=== PATIENT | female | born 1985 | race Caucasian/White ===

== ENCOUNTER 2016-06-24 13:45 | Emergency (ER) | payer OTHER, MEDICARE, MEDICAID ==
[~2016-06-24] VITALS: Ht 165.1 cm; Wt 81.6 kg
[~2016-06-24 13:45] MED LIST: /CELE20CA OR; /LINE60TA OR; /ONDA4TA PO; /QUET10TA OR; ACET650T12 PO; ATIV1TAB2 OR; BENT20TA OR; CIMZKIT SC; CLIN300C PO; DICY10EL OR; EFFE150C OR; EFFEXOR XR PO; FENT1DIS14 TD; FERR325T OR; FROV2.5T2 PO; KLON0.5T PO; KLON1TAB OR; LIQUSOL OU; MECL-68 PO; METH1INJ INJ; MIRA3350 PO; MOME50SP; PERC5TAB6 PO; PRED10TA PO; PRED5TA PO; REME15TA OR; REMERON PO; RISP0.2515 PO; SEASONALE PO; SEASTAB PO; SENO8.6T10 PO; SULF500T2 PO; TRAM50TA2 PO; VANC250C2 PO; VENL150C43 PO; VITA1CAP14 PO; VITA500C3 PO; VITA500T OR; VITAMINB IM; VITMTA PO; XANA0.25 OR; XARE15TA PO; ZOFR20TA PO; [UNRECOGNIZED DRUG - CODE] PO; [UNRECOGNIZED DRUG - OTHER]; anexsia; antivert PO; pentasa OR; remicade IV
[2016-06-24] MEDS ORDERED: PRED20TA PO (13:53)
[2016-06-24] MEDS ORDERED: ZANA4TAB PO (15:33)
[2016-06-24] MEDS ORDERED: ZITHTAB PO (15:33)
[2016-06-24 15:49] VITALS: BP 121/72
--- NOTE | 2016-06-25 08:27 | REP ---
Pain after trauma. No comparison. FINDINGS: The compartments are symmetric and relatively well maintained. There is no acute fracture or destructive osseous lesion. Signed by Renny Magana DO 06/25/2016 10:27 A
--- NOTE | 2016-06-25 08:28 | REP ---
Pain after trauma. No prior left hand for comparison. FINDINGS: The joint spaces are symmetric and relatively well maintained. There is no evidence of acute fracture or destructive osseous lesion. IMPRESSION: Negative. Signed by Renny Magana DO 06/25/2016 10:27 A
== END 2016-06-24 15:49 | disposition home or self-care (01) ==
LOC: M ED 15:25
DX: Z04.1 Encounter for examination and observation following transport accident (principal); M79.642 Pain in left hand; M25.561 Pain in right knee; H66.90 Otitis media, unspecified, unspecified ear; J01.90 Acute sinusitis, unspecified; K50.90 Crohn's disease, unspecified, without complications; G43.909 Migraine, unspecified, not intractable, without status migrainosus; M06.9 Rheumatoid arthritis, unspecified; F41.9 Anxiety disorder, unspecified; F32.9 Major depressive disorder, single episode, unspecified; Z87.440 Personal history of urinary (tract) infections; Z79.899 Other long term (current) drug therapy; F17.210 Nicotine dependence, cigarettes, uncomplicated

== ENCOUNTER → 2016-07-14 | Outpatient (CLI) | payer MEDICARE, MEDICAID ==
[~2016-07-14] MED LIST changes: +PRED20TA PO; +ZANA4TAB PO; +ZITHTAB PO
[2016-07-14 14:35] LABS: MEAN CORPUSCULAR HEMOGLOBIN 31.4 pg (27.0-33.0); MEAN CORPUSCULAR HGB CONC 32.3 g/dl (32.0-36.5); MEAN CORPUSCULAR VOLUME 97.1 fl (80.0-96.0); RED CELL DISTRIBUTION WIDTH 13.1 % (11.5-14.5); WHITE BLOOD COUNT 11.3 K/mm3 (4.0-10.0)
[2016-07-14 14:48] LABS: ALBUMIN/GLOBULIN RATIO 1.21 (1.00-1.93); ALKALINE PHOSPHATASE 118 U/L (45-117); ALT/SGPT 23 U/L (12-78); ANION GAP 9 MEQ/L (8-16); AST/SGOT 13 U/L (15-37); BILIRUBIN,TOTAL 0.9 MG/DL (0.2-1.0); BLOOD UREA NITROGEN 13 MG/DL (7-18); CALCIUM LEVEL 9.1 MG/DL (8.5-10.1); CARBON DIOXIDE LEVEL 28 MEQ/L (21-32); CHLORIDE LEVEL 100 MEQ/L (98-107); CREATININE FOR GFR 0.84 MG/DL (0.55-1.02); GLOMERULAR FILTRATION RATE > 60.0 (>60); GLUCOSE, FASTING 163 MG/DL (70-105); POTASSIUM SERUM 4.2 MEQ/L (3.5-5.1); SODIUM LEVEL 137 MEQ/L (136-145); TOTAL PROTEIN 7.3 GM/DL (6.4-8.2)
[2016-07-14 15:02] LABS: HEPATITIS B SURFACE ANTIBODY POSITIVE (POSITIVE)
== END ==
LOC: M LAB 13:44
PROVIDERS: ATTEND Internal Medicine Gastroenterology
DX: K50.919 Crohn's disease, unspecified, with unspecified complications (principal)

== ENCOUNTER → 2017-03-16 | Outpatient (CLI) | payer MEDICARE, MEDICAID ==
[~2017-03-16] MED LIST changes: +CLIN150C14 PO; +DULO30CA PO; +FROV2.5T4 PO; +GASTROGRAFIN SOLUTION 30ML (Q9963) As Ordered ONE; +ISOVUE-370 76% 100ML VIAL (Q9967) As Ordered ONE; +LOMO2.5T PO; +LORA2CON5 PO; +PERC5TAB12 PO; -PERC5TAB6 PO; +PROC25SU24 PO; -RISP0.2515 PO; +RISP0.2516 PO; +ROZE8TAB16 PO; +VITA200038 PO
--- NOTE | 2017-03-16 17:16 | REP ---
CT ABDOMEN AND PELVIS WITH CONTRAST: HISTORY: Abdominal tenderness. CONTRAST: Isovue-370, 100 mL. COMPARISON: 06/25/2015. The liver, gallbladder, pancreas, spleen and adrenal glands and kidneys are normal in appearance. There is no mass adenopathy or free fluid. The visualized lungs are clear. The urinary bladder and uterus are normal in appearance. IMPRESSION: Normal CT abdomen and pelvis. Signed by Talib Chan MD 03/16/2017 05:20 P
== END ==
LOC: M RAD 15:12
PROVIDERS: ATTEND Physician Assistant
DX: R10.815 Periumbilic abdominal tenderness (principal); K50.90 Crohn's disease, unspecified, without complications; R10.31 Right lower quadrant pain
CPT/HCPCS: 36415; 74000; 74177; 80053; 85025; 87086; Q9963; Q9967

== ENCOUNTER → 2017-03-16 | Outpatient (CLI) | payer MEDICARE, MEDICAID ==
[~2017-03-16] MED LIST changes: -GASTROGRAFIN SOLUTION 30ML (Q9963) As Ordered ONE; -ISOVUE-370 76% 100ML VIAL (Q9967) As Ordered ONE
--- NOTE | 2017-03-16 10:05 | REP ---
Clinical: Abdominal pain. Technique: Two supine views of the abdomen and pelvis. Findings: Bowel gas pattern is nonspecific. No evidence for obstruction or perforation. No organomegaly. No obvious abnormal calcifications. Skeletal structures are intact. Impression: Nonspecific abdominal radiographs. Signed by Dylon Mcmullen MD 03/16/2017 09:57 A
[2017-03-16 12:43] LABS: BASO % 0.2 % (0.0-1.0); EOS % 0.1 % (0.0-3.0); IMMATURE GRANULOCYTE % 0.4 % (0-0); LYMPH # 1.4 10^3/uL (1.5-4.5); LYMPH % 9.3 % (24.0-44.0); MEAN CORPUSCULAR HEMOGLOBIN 30.7 pg (27.0-33.0); MEAN CORPUSCULAR HGB CONC 32.4 g/dl (32.0-36.5); MEAN CORPUSCULAR VOLUME 94.7 fl (80.0-96.0); MONO # 0.3 10^3/uL (0.0-0.8); PLATELET COUNT, AUTOMATED 343 10^3/uL (150-450); RED CELL DISTRIBUTION WIDTH 13.6 % (11.5-14.5); WHITE BLOOD COUNT 14.8 10^3/uL (4.0-10.0)
[2017-03-16 13:03] LABS: ALBUMIN 4.1 GM/DL (3.2-5.2); ALBUMIN/GLOBULIN RATIO 1.08 (1.00-1.93); ALKALINE PHOSPHATASE 86 U/L (45-117); ALT/SGPT 17 U/L (12-78); ANION GAP 10 MEQ/L (8-16); AST/SGOT 8 U/L (7-37); BILIRUBIN,TOTAL 0.9 MG/DL (0.2-1.0); BLOOD UREA NITROGEN 14 MG/DL (7-18); CARBON DIOXIDE LEVEL 28 MEQ/L (21-32); CHLORIDE LEVEL 104 MEQ/L (98-107); CREATININE FOR GFR 0.66 MG/DL (0.55-1.02); GLOMERULAR FILTRATION RATE > 60.0 (>60); GLUCOSE, FASTING 107 MG/DL (70-105); POTASSIUM SERUM 4.9 MEQ/L (3.5-5.1); SODIUM LEVEL 142 MEQ/L (136-145); TOTAL PROTEIN 7.9 GM/DL (6.4-8.2)
== END ==
LOC: M WUC 09:40
PROVIDERS: ATTEND Physician Assistant
DX: R10.815 Periumbilic abdominal tenderness (principal); R10.31 Right lower quadrant pain

== ENCOUNTER 2017-03-17 23:41 | Emergency (ER) | payer MEDICARE, MEDICAID ==
[~2017-03-17] VITALS: Ht 165.1 cm; Wt 90.9 kg
[~2017-03-17 23:41] MED LIST changes: -CLIN150C14 PO; -DULO30CA PO; -LOMO2.5T PO; -LORA2CON5 PO; -PROC25SU24 PO; -ROZE8TAB16 PO; -VITA200038 PO
[2017-03-17] MEDS ORDERED: ROZE8TAB16 PO (23:57)
[2017-03-17] MEDS ORDERED: PROC25SU24 PO (23:57)
[2017-03-17] MEDS ORDERED: LOMO2.5T PO (23:57)
[2017-03-17] MEDS ORDERED: DULO30CA PO (23:57)
[2017-03-17] MEDS ORDERED: LORA2CON5 PO (23:57)
[2017-03-17] MEDS ORDERED: VITA200038 PO (23:57)
[2017-03-18] MEDS ORDERED: MIDAZOLAM INJ 5 MG/ML VIAL (J2250) As Ordered ONE (02:55)
[2017-03-18] MEDS ORDERED: METOCLOPRAMIDE INJ 10MG/2ML VIAL (J2765) IV ONE (05:30)
[2017-03-18] MEDS ORDERED: NS 1,000 ML IV ONE (05:30)
[2017-03-18] MEDS ORDERED: GASTROGRAFIN SOLUTION 30ML (Q9963) PO ONE (05:45)
[2017-03-18 06:16] LABS: MEAN CORPUSCULAR HEMOGLOBIN 30.9 pg (27.0-33.0); MEAN CORPUSCULAR HGB CONC 32.6 g/dl (32.0-36.5); MEAN CORPUSCULAR VOLUME 94.8 fl (80.0-96.0); PLATELET COUNT, AUTOMATED 333 10^3/uL (150-450); RED CELL DISTRIBUTION WIDTH 13.3 % (11.5-14.5); WHITE BLOOD COUNT 18.3 10^3/uL (4.0-10.0)
[2017-03-18 06:18] LABS: ADD MANUAL DIFFER YES; DIFF SLIDE NUMBER 98; POSITIVE DIFF POS FLAG
[2017-03-18 06:43] LABS: ALBUMIN 3.9 GM/DL (3.2-5.2); ALBUMIN/GLOBULIN RATIO 1.05 (1.00-1.93); ALKALINE PHOSPHATASE 75 U/L (45-117); ALT/SGPT 16 U/L (12-78); ANION GAP 6 MEQ/L (8-16); AST/SGOT 7 U/L (7-37); BILIRUBIN,DIRECT 0.2 MG/DL (0.0-0.2); BILIRUBIN,TOTAL 0.5 MG/DL (0.2-1.0); BLOOD UREA NITROGEN 13 MG/DL (7-18); CARBON DIOXIDE LEVEL 30 MEQ/L (21-32); CHLORIDE LEVEL 106 MEQ/L (98-107); CREATININE FOR GFR 0.74 MG/DL (0.55-1.02); GLOMERULAR FILTRATION RATE > 60.0 (>60); GLUCOSE, FASTING 78 MG/DL (70-105); POTASSIUM SERUM 4.2 MEQ/L (3.5-5.1); SODIUM LEVEL 142 MEQ/L (136-145); TOTAL PROTEIN 7.6 GM/DL (6.4-8.2)
[2017-03-18] MEDS ORDERED: MORPHINE 4 MG/ML 1ML SYRINGE IV ONE (07:15)
[2017-03-18] MEDS ORDERED: ISOVUE-370 76% 100ML VIAL (Q9967) As Ordered ONE (07:26)
[2017-03-18] MEDS ORDERED: PROMETHAZINE INJ 25 MG/ML VIAL (J2550) IV ONE (09:30)
--- NOTE | 2017-03-18 09:33 | REP ---
CT ABDOMEN AND PELVIS WITH CONTRAST: HISTORY: Fistula. CONTRAST: Isovue-370, 100 mL COMPARISON: 03/16/2017 The liver, gallbladder, pancreas, spleen, adrenal glands and kidneys are normal in appearance. There is no mass, adenopathy or free fluid. The visualized lungs are clear. The urinary bladder and uterus are normal in appearance. There is minimal thickening of the soft tissue in the region of the umbilicus. This appears decreased compared to the previous study. IMPRESSION: There is minimal thickening of the soft tissue in the region of the umbilicus that is slightly decreased compared to the previous study. This may represent cellulitis. Signed by Talib Chan MD 03/18/2017 09:55 A
[2017-03-18] MEDS ORDERED: CLIN150C14 PO (10:16)
[2017-03-18 10:29] VITALS: BP 162/73
== END 2017-03-18 10:31 | disposition home or self-care (01) ==
LOC: M ED 23:41
DX: L03.316 Cellulitis of umbilicus (principal); K50.90 Crohn's disease, unspecified, without complications; G43.909 Migraine, unspecified, not intractable, without status migrainosus; Z79.899 Other long term (current) drug therapy
CPT/HCPCS: 74177; 80048; 80076; 83605; 83690; 85025; 96361; 96374; 96375; 99284; J2250; J2765; Q9963; Q9967

== ENCOUNTER → 2017-03-29 | Outpatient (CLI) | payer MEDICARE, MEDICAID ==
[~2017-03-29] MED LIST changes: +CLIN150C14 PO; +DULO30CA PO; +LOMO2.5T PO; +LORA2CON5 PO; +PROC25SU24 PO; +ROZE8TAB16 PO; +VITA200038 PO
[2017-03-29 21:05] LABS: ALBUMIN 3.7 GM/DL (3.2-5.2); ALBUMIN/GLOBULIN RATIO 1.12 (1.00-1.93); ALKALINE PHOSPHATASE 77 U/L (45-117); ALT/SGPT 23 U/L (12-78); ANION GAP 8 MEQ/L (8-16); AST/SGOT 13 U/L (7-37); BILIRUBIN,TOTAL 0.5 MG/DL (0.2-1.0); BLOOD UREA NITROGEN 23 MG/DL (7-18); CALCIUM LEVEL 8.1 MG/DL (8.5-10.1); CARBON DIOXIDE LEVEL 28 MEQ/L (21-32); CHLORIDE LEVEL 103 MEQ/L (98-107); CREATININE FOR GFR 0.71 MG/DL (0.55-1.02); FERRITIN 62 NG/ML (8-252); GLOMERULAR FILTRATION RATE > 60.0 (>60); GLUCOSE, FASTING 98 MG/DL (70-105); MAGNESIUM LEVEL 2.2 MG/DL (1.8-2.4); PERCENT SATURATION 17.8 % (13.2-45.0); POTASSIUM SERUM 4.4 MEQ/L (3.5-5.1); SODIUM LEVEL 139 MEQ/L (136-145); TOTAL IRON BINDING CAPACITY 393 UG/DL (250-450)
[2017-03-29 21:40] LABS: MEAN CORPUSCULAR HEMOGLOBIN 30.9 pg (27.0-33.0); MEAN CORPUSCULAR HGB CONC 32.3 g/dl (32.0-36.5); MEAN CORPUSCULAR VOLUME 95.5 fl (80.0-96.0); PLATELET COUNT, AUTOMATED 316 10^3/uL (150-450); RED CELL DISTRIBUTION WIDTH 15.2 % (11.5-14.5); WHITE BLOOD COUNT 15.8 10^3/uL (4.0-10.0)
[2017-03-29 22:53] LABS: ERYTHROCYTE SEDIMENTATION RATE 3 mm/hr (0-20)
== END ==
LOC: M WUC 16:17
PROVIDERS: ATTEND Internal Medicine Gastroenterology
DX: E55.9 Vitamin D deficiency, unspecified (principal); K50.919 Crohn's disease, unspecified, with unspecified complications; M25.50 Pain in unspecified joint; G25.79 Other drug induced movement disorders; R63.4 Abnormal weight loss

== ENCOUNTER → 2017-09-25 | Outpatient (REF) | payer MEDICARE, MEDICAID ==
[2017-09-25 16:45] LABS: HEMATOCRIT 39.8 % (36.0-47.0); HEMOGLOBIN 12.8 g/dl (12.0-15.5); MEAN CORPUSCULAR HEMOGLOBIN 31.7 pg (27.0-33.0); MEAN CORPUSCULAR HGB CONC 32.2 g/dl (32.0-36.5); MEAN CORPUSCULAR VOLUME 98.5 fl (80.0-96.0); PLATELET COUNT, AUTOMATED 431 10^3/uL (150-450); RED BLOOD COUNT 4.04 10^6/uL (4.00-5.40); RED CELL DISTRIBUTION WIDTH 14.2 % (11.5-14.5); WHITE BLOOD COUNT 8.9 10^3/uL (4.0-10.0)
[2017-09-25 17:04] LABS: CORTISOL AM 3.1 UG/DL (4.3-22.4); TOTAL 25(OH) VITAMIN D 59.4 NG/ML (30.0-100.0); VITAMIN B12 LEVEL 1378 PG/ML (247-911)
[2017-09-25 17:06] LABS: ALBUMIN 3.4 GM/DL (3.2-5.2); ALBUMIN/GLOBULIN RATIO 1.06 (1.00-1.93); ALKALINE PHOSPHATASE 73 U/L (45-117); ALT/SGPT 30 U/L (12-78); ANION GAP 7 MEQ/L (8-16); AST/SGOT 13 U/L (7-37); BILIRUBIN,TOTAL 0.3 MG/DL (0.2-1.0); BLOOD UREA NITROGEN 10 MG/DL (7-18); C REACTIVE PROTEIN QUANTITATIV 2.32 MG/DL (0.00-0.30); CALCIUM LEVEL 8.7 MG/DL (8.5-10.1); CARBON DIOXIDE LEVEL 29 MEQ/L (21-32); CHLORIDE LEVEL 108 MEQ/L (98-107); CREATININE FOR GFR 0.71 MG/DL (0.55-1.30); GLOMERULAR FILTRATION RATE > 60.0 (>60); GLUCOSE, FASTING 75 MG/DL (70-100); MAGNESIUM LEVEL 2.2 MG/DL (1.8-2.4); POTASSIUM SERUM 4.3 MEQ/L (3.5-5.1); SODIUM LEVEL 144 MEQ/L (136-145); TOTAL PROTEIN 6.6 GM/DL (6.4-8.2)
[2017-09-27 14:16] LABS: ADRENOCORTICOTROPHIC HORMONE 6.1 pg/mL (7.2-63.3)
== END ==
LOC: M LABDRWCV 16:14
DX: K50.919 Crohn's disease, unspecified, with unspecified complications (principal); R19.7 Diarrhea, unspecified; L25.8 Unspecified contact dermatitis due to other agents; K21.0 Gastro-esophageal reflux disease with esophagitis; K44.9 Diaphragmatic hernia without obstruction or gangrene; Z79.899 Other long term (current) drug therapy
CPT/HCPCS: 83735

== ENCOUNTER → 2017-12-24 | Outpatient (CLI) | payer MEDICARE, MEDICAID ==
[2017-12-24 16:24] LABS: HEMATOCRIT 45.5 % (36.0-47.0); MEAN CORPUSCULAR HEMOGLOBIN 31.5 pg (27.0-33.0); MEAN CORPUSCULAR VOLUME 95.6 fl (80.0-96.0); PLATELET COUNT, AUTOMATED 367 10^3/uL (150-450); RED BLOOD COUNT 4.76 10^6/uL (4.00-5.40); RED CELL DISTRIBUTION WIDTH 13.7 % (11.5-14.5); WHITE BLOOD COUNT 11.4 10^3/uL (4.0-10.0)
[2017-12-24 16:41] LABS: INR 0.98; PROTHROMBIN TIME 13.1 SECONDS (12.1-14.4)
[2017-12-24 16:42] LABS: PARTIAL THROMBOPLASTIN TIME 27.6 SECONDS (25.4-37.6)
[2017-12-24 17:32] LABS: ERYTHROCYTE SEDIMENTATION RATE 5 mm/hr (0-20)
[2017-12-24 17:45] LABS: TOTAL 25(OH) VITAMIN D 74.1 NG/ML (30.0-100.0); VITAMIN B12 LEVEL 382 PG/ML (247-911)
[2017-12-24 23:07] LABS: ALBUMIN 4.4 GM/DL (3.2-5.2); ALKALINE PHOSPHATASE 91 U/L (45-117); ALT/SGPT 19 U/L (12-78); ANION GAP 8 MEQ/L (8-16); AST/SGOT 13 U/L (7-37); BILIRUBIN,TOTAL 1.5 MG/DL (0.2-1.0); BLOOD UREA NITROGEN 15 MG/DL (7-18); C REACTIVE PROTEIN QUANTITATIV < 0.30 MG/DL (0.00-0.30); CALCIUM LEVEL 9.6 MG/DL (8.5-10.1); CARBON DIOXIDE LEVEL 28 MEQ/L (21-32); CHLORIDE LEVEL 102 MEQ/L (98-107); CREATININE FOR GFR 0.88 MG/DL (0.55-1.30); FERRITIN 146 NG/ML (8-252); GLOMERULAR FILTRATION RATE > 60.0 (>60); GLUCOSE, FASTING 88 MG/DL (70-100); IRON (FE) 130 UG/DL (50-170); POTASSIUM SERUM 4.2 MEQ/L (3.5-5.1); SODIUM LEVEL 138 MEQ/L (136-145); TOTAL IRON BINDING CAPACITY 428 UG/DL (250-450); TOTAL PROTEIN 8.1 GM/DL (6.4-8.2)
[2017-12-24 23:08] LABS: ALBUMIN/GLOBULIN RATIO 1.19 (1.00-1.93)
[2017-12-24 23:09] LABS: PERCENT SATURATION 30.4 % (13.2-45.0)
[2017-12-30 08:06] LABS: VITAMIN A, RETINOL LEVEL 64.6 ug/dL (31.2-89.1)
== END ==
LOC: M LAB 15:30
DX: K50.919 Crohn's disease, unspecified, with unspecified complications (principal); R10.84 Generalized abdominal pain; M54.5 Low back pain; M25.50 Pain in unspecified joint; Z79.899 Other long term (current) drug therapy
CPT/HCPCS: 83550

== ENCOUNTER 2018-01-17 18:06 | Emergency (ER) | payer MEDICARE, MEDICAID ==
[2018-01-17] MEDS: TRIMETHOBENZAMIDE HCL INJ 200 MG/2 ML VIAL (J3250) IM (17:45)
[2018-01-17] MEDS: NS 1,000 ML IV (17:45)
[2018-01-17] MEDS: MORPHINE 4 MG/ML 1ML VIAL/SYRINGE (J2270) IV (17:45)
[2018-01-17 18:04] LABS: BASO % 0.3 % (0.0-1.0); EOS # 0.1 10^3/uL (0.0-0.50); EOS % 0.8 % (0.0-3.0); HEMATOCRIT 46.9 % (36.0-47.0); HEMOGLOBIN 15.2 g/dl (12.0-15.5); IMMATURE GRANULOCYTE % 0.3 % (0-3.0); LYMPH # 1.5 10^3/uL (1.5-4.5); LYMPH % 15.9 % (24.0-44.0); MEAN CORPUSCULAR HEMOGLOBIN 31.2 pg (27.0-33.0); MEAN CORPUSCULAR HGB CONC 32.4 g/dl (32.0-36.5); MEAN CORPUSCULAR VOLUME 96.3 fl (80.0-96.0); MONO # 0.5 10^3/uL (0.0-0.8); MONO % 5.1 % (0.0-5.0); NEUTROPHILS # 7.5 10^3/uL (1.8-7.7); NEUTROPHILS % 77.6 % (36.0-66.0); PLATELET COUNT, AUTOMATED 345 10^3/uL (150-450); RED BLOOD COUNT 4.87 10^6/uL (4.00-5.40); RED CELL DISTRIBUTION WIDTH 13.2 % (11.5-14.5); WHITE BLOOD COUNT 9.6 10^3/uL (4.0-10.0)
[2018-01-17 18:10] LABS: KETONE, URINE AUTO RFX NEGATIVE (NEGATIVE); LEUKOCYTE ESTERASE UR AUTO RFX NEGATIVE (NEGATIVE); MUCUS, URINE RFX LARGE (NEGATIVE); NITRITE, URINE AUTO RFX NEGATIVE (NEGATIVE); RBC, URINE AUTO RFX 7 /HPF (0-3); SPECIFIC GRAVITY UR AUTO RFX 1.021 (1.002-1.035); SQUAM EPITHELIAL CELL UR AURFX 3 /HPF (0-6); WBC, URINE AUTO RFX 1 /HPF (0-3)
[2018-01-17] MEDS: GASTROGRAFIN SOLUTION 30ML PO ×2 (18:10→18:39)
[2018-01-17 18:30] LABS: ALBUMIN 4.5 GM/DL (3.2-5.2); ALBUMIN/GLOBULIN RATIO 1.18 (1.00-1.93); ALKALINE PHOSPHATASE 87 U/L (45-117); ALT/SGPT 18 U/L (12-78); ANION GAP 7 MEQ/L (8-16); AST/SGOT 12 U/L (7-37); BILIRUBIN,TOTAL 0.6 MG/DL (0.2-1.0); BLOOD UREA NITROGEN 10 MG/DL (7-18); C REACTIVE PROTEIN QUANTITATIV < 0.30 MG/DL (0.00-0.30); CALCIUM LEVEL 9.5 MG/DL (8.5-10.1); CARBON DIOXIDE LEVEL 28 MEQ/L (21-32); CHLORIDE LEVEL 104 MEQ/L (98-107); CREATININE FOR GFR 0.75 MG/DL (0.55-1.30); GLOMERULAR FILTRATION RATE > 60.0 (>60); GLUCOSE, FASTING 92 MG/DL (70-100); HCG, SERUM QUANTITATIVE < 1.0 MIU/ML; LIPASE 102 U/L (73-393); POTASSIUM SERUM 4.1 MEQ/L (3.5-5.1); SODIUM LEVEL 139 MEQ/L (136-145); TOTAL PROTEIN 8.3 GM/DL (6.4-8.2)
[2018-01-17] MEDS ORDERED: ISOVUE-370 76% 100ML VIAL (Q9967) As Ordered (19:53)
[2018-01-17] MEDS: methylPREDNISolone INJ 125 MG/2 ML VIAL (J2930) IV (19:56)
[2018-01-17] MEDS: ONDANSETRON 4MG/2ML VIAL (J2405) IV (19:56)
[2018-01-17] MEDS: ONDANSETRON 4 MG ORAL DISINTEGRATING TAB (Q0162 PER 1MG) PO (21:37)
[2018-01-17] MEDS: NORCO 5/325MG TABLET (BULK FOR ED) PO (21:38)
== END 2018-01-17 21:40 | disposition home or self-care (01) ==
LOC: M ED 18:06
DX: R10.12 Left upper quadrant pain (principal); R11.10 Vomiting, unspecified; Z87.19 Personal history of other diseases of the digestive system; F41.9 Anxiety disorder, unspecified; F33.9 Major depressive disorder, recurrent, unspecified; Z87.442 Personal history of urinary calculi; Z87.891 Personal history of nicotine dependence; Z79.899 Other long term (current) drug therapy
CPT/HCPCS: J2270

== ENCOUNTER → 2018-01-28 | Outpatient (REF) | payer MEDICARE, MEDICAID | LOC: M LAB REF 09:00 | DX: K50.919 Crohn's disease, unspecified, with unspecified complications (principal); R10.84 Generalized abdominal pain; M54.5 Low back pain; M25.50 Pain in unspecified joint | CPT/HCPCS: 84311 ==

== ENCOUNTER → 2018-02-20 | Outpatient (REF) | payer MEDICARE, MEDICAID ==
[2018-02-20 17:05] LABS: HEMATOCRIT 39.2 % (36.0-47.0); HEMOGLOBIN 12.3 g/dl (12.0-15.5); MEAN CORPUSCULAR HEMOGLOBIN 31.1 pg (27.0-33.0); MEAN CORPUSCULAR HGB CONC 31.4 g/dl (32.0-36.5); PLATELET COUNT, AUTOMATED 316 10^3/uL (150-450); RED BLOOD COUNT 3.96 10^6/uL (4.00-5.40); RED CELL DISTRIBUTION WIDTH 13.7 % (11.5-14.5); WHITE BLOOD COUNT 11.3 10^3/uL (4.0-10.0)
[2018-02-20 17:09] LABS: ALBUMIN 3.6 GM/DL (3.2-5.2); ALBUMIN/GLOBULIN RATIO 1.33 (1.00-1.93); ALKALINE PHOSPHATASE 55 U/L (45-117); ALT/SGPT 28 U/L (12-78); ANION GAP 5 MEQ/L (8-16); AST/SGOT 20 U/L (7-37); BILIRUBIN,TOTAL 0.4 MG/DL (0.2-1.0); BLOOD UREA NITROGEN 14 MG/DL (7-18); CALCIUM LEVEL 8.7 MG/DL (8.5-10.1); CARBON DIOXIDE LEVEL 34 MEQ/L (21-32); CHLORIDE LEVEL 103 MEQ/L (98-107); CREATININE FOR GFR 0.66 MG/DL (0.55-1.30); GLOMERULAR FILTRATION RATE > 60.0 (>60); GLUCOSE, FASTING 78 MG/DL (70-100); MAGNESIUM LEVEL 2.4 MG/DL (1.8-2.4); POTASSIUM SERUM 3.9 MEQ/L (3.5-5.1); SODIUM LEVEL 142 MEQ/L (136-145); TOTAL PROTEIN 6.3 GM/DL (6.4-8.2)
[2018-02-20 17:12] LABS: INR 0.94; PROTHROMBIN TIME 12.6 SECONDS (12.1-14.4)
[2018-02-20 17:13] LABS: PARTIAL THROMBOPLASTIN TIME 25.3 SECONDS (25.4-37.6)
[2018-02-20 17:17] LABS: TOTAL 25(OH) VITAMIN D 38.3 NG/ML (30.0-100.0); VITAMIN B12 LEVEL 423 PG/ML (247-911)
[2018-02-25 14:35] LABS: VITAMIN C, ASCORBIC ACID 0.7 mg/dL (0.2-2.0)
== END ==
LOC: M LABDRWCV 16:28
DX: K50.919 Crohn's disease, unspecified, with unspecified complications (principal); M25.50 Pain in unspecified joint; G25.79 Other drug induced movement disorders; E55.9 Vitamin D deficiency, unspecified
CPT/HCPCS: 83735

== ENCOUNTER → 2018-04-08 | Outpatient (REF) | payer MEDICARE, MEDICAID ==
[~2018-04-08] MED LIST changes: +ACET30TAB PO; +BUPR1TAB53; +TIGA300C2 PO; -ZOFR20TA PO; +ZOFR4TAB16 PO
== END ==
LOC: M LAB REF 13:42
PROVIDERS: ATTEND Internal Medicine Gastroenterology
DX: K50.919 Crohn's disease, unspecified, with unspecified complications (principal)

== ENCOUNTER → 2018-10-22 | Outpatient (CLI) | payer MEDICARE, MEDICAID ==
[~2018-10-22] MED LIST changes: -/CELE20CA OR; -/LINE60TA OR; -/ONDA4TA PO; -/QUET10TA OR; +ACET-716 PO; -ACET30TAB PO; +CELE1CAP4 OR; -DULO30CA PO; +DULO30CA9 PO; +ONDA-1 PO; +PRED-351 PO; -PRED10TA PO; +SERO1TAB OR; -VANC250C2 PO; +VANC250C3 PO; +ZYVO100T OR
[2018-10-22 10:53] LABS: HEMATOCRIT 44.3 % (36.0-47.0); HEMOGLOBIN 14.1 g/dl (12.0-15.5); MEAN CORPUSCULAR HEMOGLOBIN 30.5 pg (27.0-33.0); MEAN CORPUSCULAR HGB CONC 31.8 g/dl (32.0-36.5); MEAN CORPUSCULAR VOLUME 95.9 fl (80.0-96.0); PLATELET COUNT, AUTOMATED 361 10^3/uL (150-450); RED BLOOD COUNT 4.62 10^6/uL (4.00-5.40); WHITE BLOOD COUNT 20.2 10^3/uL (4.0-10.0)
[2018-10-22 11:29] LABS: ALBUMIN 3.8 GM/DL (3.2-5.2); ALT/SGPT 18 U/L (12-78); BILIRUBIN,TOTAL 1.1 MG/DL (0.2-1.0); BLOOD UREA NITROGEN 14 MG/DL (7-18); C REACTIVE PROTEIN QUANTITATIV 0.37 MG/DL (0.00-0.30); CALCIUM LEVEL 9.4 MG/DL (8.5-10.1); CARBON DIOXIDE LEVEL 30 MEQ/L (21-32); CHLORIDE LEVEL 111 MEQ/L (98-107); CREATININE FOR GFR 0.89 MG/DL (0.55-1.30); GLOMERULAR FILTRATION RATE > 60.0 (>60); GLUCOSE, FASTING 78 MG/DL (70-100); MAGNESIUM LEVEL 2.2 MG/DL (1.8-2.4); POTASSIUM SERUM 3.9 MEQ/L (3.5-5.1); SODIUM LEVEL 135 MEQ/L (136-145); TOTAL 25(OH) VITAMIN D 93.9 NG/ML (30.0-100.0); TOTAL PROTEIN 7.2 GM/DL (6.4-8.2); VITAMIN B12 LEVEL 522 PG/ML (247-911)
[2018-10-23 08:47] LABS: HEPATITIS B SURFACE ANTIGEN NEGATIVE (NEGATIVE)
[2018-10-23 09:15] LABS: HEPATITIS C VIRUS ABY INDEX 0.1 INDEX (<0.8)
== END ==
LOC: M LAB 10:00
PROVIDERS: ATTEND Internal Medicine Gastroenterology
DX: K50.919 Crohn's disease, unspecified, with unspecified complications (principal); R19.7 Diarrhea, unspecified; K21.0 Gastro-esophageal reflux disease with esophagitis

== ENCOUNTER → 2018-11-04 | Outpatient (CLI) | payer OTHER, MEDICARE, MEDICAID ==
[~2018-11-04] MED LIST changes: +ADDE30CA3 PO; +GABA-843 PO; +VALI5TAB PO
--- NOTE | 2018-11-04 18:53 | REP ---
REASON: Back pain. Three views were obtained. COMPARISON: None. Vertebral body height and alignment is within normal limits. The disc spaces are symmetric and well maintained. The pedicles are intact bilaterally. IMPRESSION: Limited exam showing no abnormality. Electronically Signed by Renny Magana DO 11/04/2018 07:41 P
--- NOTE | 2018-11-04 18:54 | REP ---
REASON: Pain. FINDINGS: The hip joint spaces are symmetric and relatively well maintained. There is no acute fracture or destructive osseous lesion. Electronically Signed by Renny Magana DO 11/04/2018 07:41 P
== END ==
LOC: M WUC 14:51
PROVIDERS: ATTEND Internal Medicine Gastroenterology
DX: M54.5 Low back pain (principal); M25.559 Pain in unspecified hip

== ENCOUNTER → 2018-11-12 | Outpatient (CLI) | payer OTHER, MEDICARE, MEDICAID | LOC: M WUC 16:03 | PROVIDERS: ATTEND Physician Assistant | DX: M54.5 Low back pain (principal) ==

== ENCOUNTER → 2018-11-19 | Outpatient (CLI) | payer MEDICARE, MEDICAID ==
[~2018-11-19] MED LIST changes: -ADDE30CA3 PO; -GABA-843 PO; -VALI5TAB PO
--- NOTE | 2018-11-19 09:31 | REP ---
RIGHT UPPER QUADRANT ULTRASOUND: Real-time sonographic evaluation of the right upper quadrant performed. Gallbladder demonstrates no evidence of intraluminal sludge or calculi, wall thickening, or pericholecystic fluid. There is no intrahepatic or extrahepatic biliary dilatation, common bile duct measuring 5 mm. Liver demonstrates heterogeneous increased echotexture compatible with diffuse fibrofatty infiltration. No gross mass is seen. Pancreas is not well seen due to overlying bowel gas. Right kidney demonstrates no hydronephrosis with normal size 9.4 cm in length. There is no ascites. IMPRESSION: Diffuse fibrofatty infiltration of the liver. Electronically Signed by Adam Meléndez MD 11/19/2018 07:18 P
== END ==
LOC: M RAD 06:06
PROVIDERS: ATTEND Internal Medicine Gastroenterology
DX: K76.0 Fatty (change of) liver, not elsewhere classified (principal)

== ENCOUNTER 2018-12-02 14:57 | Emergency (ER) | payer MEDICARE, MEDICAID ==
[~2018-12-02] VITALS: Ht 165.1 cm; Wt 95.5 kg
[2018-12-02] MEDS ORDERED: GABA-843 PO (15:12)
[2018-12-02] MEDS ORDERED: ADDE30CA3 PO (15:12)
[2018-12-02 15:49] LABS: BASO % 0.2 % (0.0-1.0); EOS # 0.1 10^3/uL (0.0-0.50); EOS % 0.5 % (0.0-3.0); HEMATOCRIT 40.5 % (36.0-47.0); HEMOGLOBIN 13.3 g/dl (12.0-15.5); LYMPH # 3.1 10^3/uL (1.5-4.5); LYMPH % 25.1 % (24.0-44.0); MEAN CORPUSCULAR HEMOGLOBIN 31.7 pg (27.0-33.0); MEAN CORPUSCULAR HGB CONC 32.8 g/dl (32.0-36.5); MEAN CORPUSCULAR VOLUME 96.7 fl (80.0-96.0); NEUTROPHILS # 8.1 10^3/uL (1.8-7.7); NEUTROPHILS % 65.8 % (36.0-66.0); PLATELET COUNT, AUTOMATED 312 10^3/uL (150-450); RED BLOOD COUNT 4.19 10^6/uL (4.00-5.40); WHITE BLOOD COUNT 12.3 10^3/uL (4.0-10.0)
[2018-12-02 16:20] LABS: BLOOD UREA NITROGEN 19 MG/DL (7-18); CALCIUM LEVEL 9.8 MG/DL (8.5-10.1); CARBON DIOXIDE LEVEL 30 MEQ/L (21-32); CHLORIDE LEVEL 107 MEQ/L (98-107); GLOMERULAR FILTRATION RATE > 60.0 (>60); GLUCOSE, FASTING 81 MG/DL (70-100); POTASSIUM SERUM 3.6 MEQ/L (3.5-5.1); SODIUM LEVEL 144 MEQ/L (136-145)
[2018-12-02] MEDS ORDERED: dexameTHASONE 4 MG/ML 1ML VIAL (J1100) IV ONE (17:30)
[2018-12-02] MEDS ORDERED: MORPHINE 4 MG/ML 1ML VIAL/SYRINGE (J2270) IV ONE (17:30)
[2018-12-02] MEDS ORDERED: ACETAMINOPHEN 500 MG TAB PO ONE (17:30)
[2018-12-02] MEDS ORDERED: diazePAM 5 MG TAB PO ONE (17:30)
[2018-12-02] MEDS ORDERED: LIDOCAINE 5% (LIDODERM) PATCH TD ONE (17:30)
[2018-12-02] MEDS ORDERED: KETOROLAC 30 MG/ML VIAL (J1885) IV ONE (17:30)
[2018-12-02] MEDS ORDERED: VALI5TAB PO (19:48)
[2018-12-02 20:00] VITALS: BP 104/62
== END 2018-12-02 20:19 | disposition home or self-care (01) ==
LOC: EDSEX 14:57 → EDBD 14:57 → M ED 14:57
DX: M54.5 Low back pain (principal); M62.830 Muscle spasm of back; D64.9 Anemia, unspecified; F33.9 Major depressive disorder, recurrent, unspecified; F41.9 Anxiety disorder, unspecified; K50.90 Crohn's disease, unspecified, without complications; Z79.899 Other long term (current) drug therapy
CPT/HCPCS: 80048; 85025; 96374; 96375; 99285; J1100; J1885; J2270

== ENCOUNTER → 2019-01-23 | Outpatient (CLI) | payer MEDICARE, MEDICAID ==
[~2019-01-23] MED LIST changes: +ADDE30CA3 PO; +GABA-843 PO; +VALI5TAB PO
== END ==
LOC: M LAB 13:00
PROVIDERS: ATTEND Internal Medicine Gastroenterology
DX: K50.919 Crohn's disease, unspecified, with unspecified complications (principal)
CPT/HCPCS: 36415; 83520; G0463

== ENCOUNTER → 2019-01-29 | Outpatient (REF) | payer MEDICARE, MEDICAID ==
[2019-01-29 16:44] LABS: HEMATOCRIT 44.2 % (36.0-47.0); HEMOGLOBIN 13.9 g/dl (12.0-15.5); MEAN CORPUSCULAR HGB CONC 31.4 g/dl (32.0-36.5); MEAN CORPUSCULAR VOLUME 95.5 fl (80.0-96.0); PLATELET COUNT, AUTOMATED 419 10^3/uL (150-450); RED BLOOD COUNT 4.63 10^6/uL (4.00-5.40); WHITE BLOOD COUNT 9.2 10^3/uL (4.0-10.0)
[2019-01-29 16:58] LABS: ALBUMIN 3.9 GM/DL (3.2-5.2); ALT/SGPT 17 U/L (12-78); BILIRUBIN,TOTAL 0.4 MG/DL (0.2-1.0); BLOOD UREA NITROGEN 18 MG/DL (7-18); CALCIUM LEVEL 9.2 MG/DL (8.5-10.1); CARBON DIOXIDE LEVEL 30 MEQ/L (21-32); CHLORIDE LEVEL 104 MEQ/L (98-107); CREATININE FOR GFR 0.99 MG/DL (0.55-1.30); GLOMERULAR FILTRATION RATE > 60.0 (>60); GLUCOSE, FASTING 88 MG/DL (70-100); MAGNESIUM LEVEL 1.9 MG/DL (1.8-2.4); POTASSIUM SERUM 3.7 MEQ/L (3.5-5.1); SODIUM LEVEL 141 MEQ/L (136-145)
[2019-01-29 16:59] LABS: TOTAL 25(OH) VITAMIN D 58.5 NG/ML (30.0-100.0); VITAMIN B12 LEVEL 560 PG/ML (247-911)
== END ==
LOC: M LABDRWCV 16:09
PROVIDERS: ATTEND Internal Medicine Gastroenterology
DX: E55.9 Vitamin D deficiency, unspecified (principal); K50.919 Crohn's disease, unspecified, with unspecified complications; R19.7 Diarrhea, unspecified; R94.5 Abnormal results of liver function studies

== ENCOUNTER → 2019-04-25 | Outpatient (CLI) | payer MEDICARE, MEDICAID ==
[2019-04-25 13:19] LABS: HEMATOCRIT 39.8 % (36.0-47.0); HEMOGLOBIN 12.6 g/dl (12.0-15.5); MEAN CORPUSCULAR HGB CONC 31.7 g/dl (32.0-36.5); MEAN CORPUSCULAR VOLUME 91.7 fl (80.0-96.0); PLATELET COUNT, AUTOMATED 345 10^3/uL (150-450); RED BLOOD COUNT 4.34 10^6/uL (4.00-5.40); WHITE BLOOD COUNT 8.7 10^3/uL (4.0-10.0)
[2019-04-25 13:55] LABS: ERYTHROCYTE SEDIMENTATION RATE 126 mm/hr (0-20)
[2019-04-25 13:56] LABS: ALBUMIN 3.9 GM/DL (3.2-5.2); ALT/SGPT 14 U/L (12-78); BILIRUBIN,TOTAL 0.7 MG/DL (0.2-1.0); BLOOD UREA NITROGEN 8 MG/DL (7-18); C REACTIVE PROTEIN QUANTITATIV 1.54 MG/DL (0.00-0.30); CARBON DIOXIDE LEVEL 25 MEQ/L (21-32); CHLORIDE LEVEL 106 MEQ/L (98-107); CREATININE FOR GFR 0.77 MG/DL (0.55-1.30); GLOMERULAR FILTRATION RATE > 60.0 (>60); GLUCOSE, FASTING 82 MG/DL (70-100); MAGNESIUM LEVEL 2.1 MG/DL (1.8-2.4); POTASSIUM SERUM 4.1 MEQ/L (3.5-5.1); SODIUM LEVEL 141 MEQ/L (136-145); THYROID STIMULATING HORMONE 0.812 uIU/ML (0.358-3.740); TOTAL PROTEIN 6.7 GM/DL (6.4-8.2)
[2019-04-25 16:02] LABS: TOTAL 25(OH) VITAMIN D 88.5 NG/ML (30.0-100.0)
[2019-04-25 16:03] LABS: VITAMIN B12 LEVEL 359 PG/ML (247-911)
== END ==
LOC: M LAB 11:39
PROVIDERS: ATTEND Internal Medicine Gastroenterology
DX: E27.2 Addisonian crisis (principal); K44.9 Diaphragmatic hernia without obstruction or gangrene; K21.0 Gastro-esophageal reflux disease with esophagitis; Z79.52 Long term (current) use of systemic steroids; R10.84 Generalized abdominal pain

== ENCOUNTER → 2019-05-13 | Outpatient (REF) | payer MEDICARE, MEDICAID ==
[~2019-05-13] MED LIST changes: -MECL-68 PO; +MECL1TAB31 PO
== END ==
LOC: M LAB REF 16:53
PROVIDERS: ATTEND Internal Medicine Gastroenterology
DX: E27.2 Addisonian crisis (principal); Z79.52 Long term (current) use of systemic steroids; K50.919 Crohn's disease, unspecified, with unspecified complications; R19.7 Diarrhea, unspecified; K44.9 Diaphragmatic hernia without obstruction or gangrene; K21.0 Gastro-esophageal reflux disease with esophagitis; R10.84 Generalized abdominal pain

== ENCOUNTER → 2019-08-21 | Outpatient (CLI) | payer MEDICARE, MEDICAID ==
--- NOTE | 2019-08-21 12:50 | REP ---
REASON FOR EXAM: Right rib trauma. COMPARISON: None. The frontal view of the chest is normal. The lung varghese are clear and the heart is not enlarged. Six views of the right ribs show evidence of slight callous formation at the end of the right 6th rib. IMPRESSION: Likely healing right 6th rib fracture. Electronically Signed by Renny Magana DO 08/21/2019 12:51 P
== END ==
LOC: M WUC 11:57
PROVIDERS: ATTEND Physician Assistant
DX: S20.211A Contusion of right front wall of thorax, initial encounter (principal); X58.XXXA Exposure to other specified factors, initial encounter; Y92.9 Unspecified place or not applicable

== ENCOUNTER 2019-08-26 13:54 | Outpatient (CLI) | payer MEDICARE, MEDICAID ==
[~2019-08-26] VITALS: Ht 165.1 cm; Wt 90.9 kg
[2019-08-26] MEDS ORDERED: EPINEPHrine INJ 1 MG/ML 1ML AMP IM PRN (14:15)
[2019-08-26] MEDS ORDERED: NS 1,000 ML IV SCH (14:15)
[2019-08-26] MEDS ORDERED: diphenhydrAMINE 50MG/ML VIAL (J1200) IV PRN (14:15)
[2019-08-26] MEDS ORDERED: methylPREDNISolone INJ 125 MG/2 ML VIAL (J2930) IV PRN (14:15)
[2019-08-26] MEDS ORDERED: ALBUTEROL SULFATE 2.5 MG/0.5 ML INH NEB SOLN INH PRN (14:15)
[2019-08-26 14:48] VITALS: BP 112/74
[2019-08-26] MEDS ORDERED: USTEKINUMAB 520 MG in NS 146 ML IV ONE (15:00)
[2019-08-26 15:09] VITALS: BP 135/79
[2019-08-26 17:00] VITALS: BP 114/73
== END 2019-08-26 17:00 | disposition home or self-care (01) ==
LOC: M INFU 13:54
PROVIDERS: ATTEND Internal Medicine Gastroenterology
DX: K50.90 Crohn's disease, unspecified, without complications (principal)
CPT/HCPCS: 96365; 96366; J3358

== ENCOUNTER → 2019-10-23 | Outpatient (REF) | payer MEDICARE, MEDICAID ==
[2019-10-24 11:46] LABS: HEMATOCRIT 38.3 % (36.0-47.0); HEMOGLOBIN 12.2 g/dl (12.0-15.5); MEAN CORPUSCULAR HEMOGLOBIN 30.6 pg (27.0-33.0); MEAN CORPUSCULAR HGB CONC 31.9 g/dl (32.0-36.5); PLATELET COUNT, AUTOMATED 379 10^3/uL (150-450); RED BLOOD COUNT 3.99 10^6/uL (4.00-5.40); WHITE BLOOD COUNT 12.5 10^3/uL (4.0-10.0)
[2019-10-24 12:12] LABS: ALBUMIN 3.8 GM/DL (3.2-5.2); ALT/SGPT 15 U/L (12-78); BILIRUBIN,TOTAL 0.3 MG/DL (0.2-1.0); BLOOD UREA NITROGEN 9 MG/DL (7-18); C REACTIVE PROTEIN QUANTITATIV 0.98 MG/DL (0.00-0.30); CALCIUM LEVEL 9.3 MG/DL (8.5-10.1); CARBON DIOXIDE LEVEL 30 MEQ/L (21-32); CHLORIDE LEVEL 109 MEQ/L (98-107); CREATININE FOR GFR 0.89 MG/DL (0.55-1.30); GLOMERULAR FILTRATION RATE > 60.0 (>60); GLUCOSE, FASTING 83 MG/DL (70-100); POTASSIUM SERUM 5.1 MEQ/L (3.5-5.1); SODIUM LEVEL 145 MEQ/L (136-145); TOTAL PROTEIN 6.9 GM/DL (6.4-8.2)
[2019-10-24 12:19] LABS: HEPATITIS B SURFACE ANTIBODY POSITIVE (POSITIVE)
[2019-10-24 12:30] LABS: HEPATITIS B SURFACE ANTIGEN NEGATIVE (NEGATIVE)
[2019-10-24 12:58] LABS: HEPATITIS C VIRUS ABY INDEX 0.1 INDEX (<0.8)
== END ==
LOC: M LABDRAWC 11:28
PROVIDERS: ATTEND Internal Medicine Gastroenterology
DX: K50.919 Crohn's disease, unspecified, with unspecified complications (principal); R10.84 Generalized abdominal pain; R19.7 Diarrhea, unspecified; R94.5 Abnormal results of liver function studies

== ENCOUNTER → 2020-04-12 | Outpatient (REF) | payer MEDICARE, MEDICAID ==
[2020-04-12 16:34] LABS: HEMATOCRIT 40.3 % (36.0-47.0); MEAN CORPUSCULAR HEMOGLOBIN 30.9 pg (27.0-33.0); MEAN CORPUSCULAR HGB CONC 32.3 g/dl (32.0-36.5); MEAN CORPUSCULAR VOLUME 95.7 fl (80.0-96.0); PLATELET COUNT, AUTOMATED 410 10^3/uL (150-450); RED BLOOD COUNT 4.21 10^6/uL (4.00-5.40)
[2020-04-12 16:57] LABS: ALBUMIN 3.8 GM/DL (3.2-5.2); ALT/SGPT 26 U/L (12-78); BILIRUBIN,TOTAL 0.4 MG/DL (0.2-1.0); BLOOD UREA NITROGEN 13 MG/DL (7-18); C REACTIVE PROTEIN QUANTITATIV 0.75 MG/DL (0.00-0.30); CALCIUM LEVEL 9.1 MG/DL (8.5-10.1); CARBON DIOXIDE LEVEL 31 MEQ/L (21-32); CHLORIDE LEVEL 105 MEQ/L (98-107); GLOMERULAR FILTRATION RATE > 60.0 (>60); GLUCOSE, FASTING 82 MG/DL (70-100); MAGNESIUM LEVEL 2.3 MG/DL (1.8-2.4); POTASSIUM SERUM 4.3 MEQ/L (3.5-5.1); SODIUM LEVEL 140 MEQ/L (136-145)
[2020-04-12 17:04] LABS: TOTAL 25(OH) VITAMIN D 32.6 NG/ML (30.0-100.0)
[2020-04-12 17:05] LABS: VITAMIN B12 LEVEL 300 PG/ML (247-911)
== END ==
LOC: M LABDRAWC 15:38
PROVIDERS: ATTEND Internal Medicine Gastroenterology
DX: K50.919 Crohn's disease, unspecified, with unspecified complications (principal); R10.84 Generalized abdominal pain; R19.7 Diarrhea, unspecified; R11.0 Nausea; Z79.899 Other long term (current) drug therapy

== ENCOUNTER → 2020-08-17 | Outpatient (REF) | payer MEDICARE, MEDICAID ==
[~2020-08-17] MED LIST changes: -CLIN150C14 PO; +CLIN150C15 PO; +GABA-282 PO; -GABA-843 PO
[2020-08-18 12:35] LABS: HEMATOCRIT 34.4 % (36.0-47.0); MEAN CORPUSCULAR HEMOGLOBIN 30.7 pg (27.0-33.0); MEAN CORPUSCULAR VOLUME 96.1 fl (80.0-96.0); PLATELET COUNT, AUTOMATED 303 10^3/uL (150-450); RED BLOOD COUNT 3.58 10^6/uL (4.00-5.40); WHITE BLOOD COUNT 6.1 10^3/uL (4.0-10.0)
[2020-08-18 13:21] LABS: ALBUMIN 3.7 GM/DL (3.2-5.2); ALT/SGPT 23 U/L (12-78); BILIRUBIN,TOTAL 0.4 MG/DL (0.2-1.0); BLOOD UREA NITROGEN 9 MG/DL (7-18); CALCIUM LEVEL 9.6 MG/DL (8.5-10.1); CARBON DIOXIDE LEVEL 31 MEQ/L (21-32); CHLORIDE LEVEL 106 MEQ/L (98-107); CREATININE FOR GFR 0.65 MG/DL (0.55-1.30); FOLATE 11.8 NG/ML (>5.4); GLOMERULAR FILTRATION RATE > 60.0 (>60); GLUCOSE, FASTING 87 MG/DL (70-100); POTASSIUM SERUM 5.8 MEQ/L (3.5-5.1); SODIUM LEVEL 140 MEQ/L (136-145); TOTAL 25(OH) VITAMIN D 35.3 NG/ML (30.0-100.0); TOTAL PROTEIN 6.6 GM/DL (6.4-8.2); VITAMIN B12 LEVEL 755 PG/ML (247-911)
== END ==
LOC: M SFHCADAM 15:54
PROVIDERS: ATTEND Family Medicine
DX: L30.4 Erythema intertrigo (principal); K50.918 Crohn's disease, unspecified, with other complication; D51.8 Other vitamin B12 deficiency anemias; F32.9 Major depressive disorder, single episode, unspecified; F90.0 Attention-deficit hyperactivity disorder, predominantly inattentive type; E55.9 Vitamin D deficiency, unspecified
CPT/HCPCS: 80053; 82306; 82607; 82746; 84439; 84443; 85027; G0463

== ENCOUNTER → 2021-03-21 | Outpatient (CLI) | payer MEDICARE, MEDICAID ==
[~2021-03-21] MED LIST changes: -CLIN150C15 PO; +CLIN150C17 PO
== END ==
LOC: M LAB 16:51
PROVIDERS: ATTEND Internal Medicine Endocrinology, Diabetes & Metabolism
DX: M81.0 Age-related osteoporosis without current pathological fracture (principal)

== ENCOUNTER 2021-04-17 00:32 | Inpatient (IN) | payer MEDICARE, MEDICAID ==
[~2021-04-17] VITALS: Ht 162.6 cm; Wt 89.0 kg
[2021-04-17 01:19] LABS: BASO # 0.1 10^3/uL (0.0-0.2); BASO % 0.3 % (0.0-1.0); EOS % 0.3 % (0.0-3.0); HEMATOCRIT 35.4 % (36.0-47.0); HEMOGLOBIN 11.7 g/dl (12.0-15.5); LYMPH % 6.8 % (24.0-44.0); MEAN CORPUSCULAR HEMOGLOBIN 30.9 pg (27.0-33.0); MEAN CORPUSCULAR HGB CONC 33.1 g/dl (32.0-36.5); MEAN CORPUSCULAR VOLUME 93.4 fl (80.0-96.0); MONO # 0.6 10^3/uL (0.0-0.8); MONO % 3.7 % (2.0-8.0); NEUTROPHILS # 13.1 10^3/uL (1.5-8.5); NEUTROPHILS % 88.6 % (36.0-66.0); PLATELET COUNT, AUTOMATED 268 10^3/uL (150-450); RED BLOOD COUNT 3.79 10^6/uL (4.00-5.40); WHITE BLOOD COUNT 14.8 10^3/uL (4.0-10.0)
[2021-04-17] MEDS ORDERED: DEXTROSE 50% 50 ML SYRINGE As Ordered ONE (01:23)
[2021-04-17] MEDS ORDERED: DEXTROSE 50% 50 ML SYRINGE IV STA (01:26)
[2021-04-17 01:50] LABS: HCG, SERUM QUALITATIVE NEGATIVE (NEGATIVE)
[2021-04-17 01:51] LABS: ACETAMINOPHEN LEVEL < 2.0 UG/ML (10.0-30.0); ALBUMIN 4.2 GM/DL (3.2-5.2); ALT/SGPT 29 U/L (12-78); BILIRUBIN,DIRECT 0.3 MG/DL (0.0-0.2); BLOOD UREA NITROGEN 15 MG/DL (7-18); CALCIUM LEVEL 8.7 MG/DL (8.5-10.1); CARBON DIOXIDE LEVEL 28 MEQ/L (21-32); CHLORIDE LEVEL 100 MEQ/L (98-107); ETHYL ALCOHOL (ETHANOL) < 0.003 % (0.000-0.010); GLOMERULAR FILTRATION RATE > 60.0 (>60); GLUCOSE, FASTING 69 MG/DL (70-100); POTASSIUM SERUM 4.2 MEQ/L (3.5-5.1); SALICYLATE LEVEL < 1.7 MG/DL (5.0-30.0); SODIUM LEVEL 136 MEQ/L (136-145); THYROID STIMULATING HORMONE 0.215 uIU/ML (0.358-3.740); TOTAL PROTEIN 7.3 GM/DL (6.4-8.2)
[2021-04-17 02:22] LABS: ABG BASE EXCESS 1.7 (-2.0-2.0); ABG HCO3 28.4 MEQ/L (22.0-26.0); ABG O2 SATURATION 94.3 % (95.0-99.0); ABG PARTIAL PRESSURE CO2 54.3 mmHg (35.0-45.0); ABG PARTIAL PRESSURE O2 75.3 mmHg (75.0-100.0); ABG STANDARD HCO3 25.9 MEQ/L (22.0-26.0); ABG TOTAL CO2 30.1 MEQ/L (22.0-29.0); ABG pH (ARTERIAL) 7.337 UNITS (7.350-7.450)
--- NOTE | 2021-04-17 02:25 | REPVR ---
PROCEDURE INFORMATION: Exam: XR Chest Exam date and time: 04/17/2021 2:21 AM Age: 36 years old Clinical indication: Other: AMS; Additional info: Altered mental status TECHNIQUE: Imaging protocol: XR of the chest. Views: 1 view. COMPARISON: CR RIBS UNLATERAL WITH PA CHEST 08/21/2019 12:09 PM FINDINGS: Lungs: There is decreased inflation of the lungs. There are no interval infiltrates. Pleural spaces: Unremarkable. No pleural effusion. No pneumothorax. Heart/Mediastinum: The heart and mediastinum are unchanged. Bones/joints: Unremarkable. IMPRESSION: Negative poor inspiratory chest with little change from 08/21/2019. Electronically signed by: Heriberto Day On 04/17/2021 02:25:13 AM
--- NOTE | 2021-04-17 02:25 | REPVR ---
PROCEDURE INFORMATION: Exam: CT Head Without Contrast Exam date and time: 04/17/2021 2:04 AM Age: 36 years old Clinical indication: Altered mental status/memory loss; Confusion or disorientation TECHNIQUE: Imaging protocol: Computed tomography of the head without contrast. Radiation optimization: All CT scans at this facility use at least one of these dose optimization techniques: automated exposure control; mA and/or kV adjustment per patient size (includes targeted exams where dose is matched to clinical indication); or iterative reconstruction. COMPARISON: CT Head without contrast 01/07/2015 5:08 PM FINDINGS: Brain: Normal. No hemorrhage. Unremarkable white matter. No mass effect. Cerebral ventricles: No ventriculomegaly. Paranasal sinuses: Minimal right maxillary sinus mucosal thickening. Mastoid air cells: Visualized mastoid air cells are well aerated. Bones/joints: Unremarkable. No acute fracture. Soft tissues: Unremarkable. IMPRESSION: 1. Minimal right maxillary sinus disease. 2. Otherwise negative noncontrast head CT with no change intracranially since 01/07/2015. Electronically signed by: Heriberto Day On 04/17/2021 02:24:32 AM
[2021-04-17 03:59] LABS: AMPHETAMINES LEVEL URINE NEGATIVE (NEGATIVE); BARBITURATES URINE NEGATIVE (NEGATIVE); BENZODIAZEPINES URINE NEGATIVE (NEGATIVE); CANNABINOIDS URINE POSITIVE (NEGATIVE); COCAINE METABOLITE URINE NEGATIVE (NEGATIVE); METHADONE URINE NEGATIVE (NEGATIVE); OPIATES URINE NEGATIVE (NEGATIVE); PHENCYCLIDINE URINE NEGATIVE (NEGATIVE)
[2021-04-17] MEDS ORDERED: NS 1,000 ML IV SCH (04:20)
[2021-04-17] MEDS ORDERED: ADDE30TA PO (04:33)
[2021-04-17] MEDS ORDERED: PANT40TA29 PO (04:33)
[2021-04-17] MEDS ORDERED: BELS1TAB PO (04:33)
[2021-04-17] MEDS ORDERED: OXYC10TA3 PO (04:33)
[2021-04-17] MEDS ORDERED: TRAN1DIS4 TOP (04:33)
[2021-04-17] MEDS ORDERED: METH25IN12 INJ (04:33)
[2021-04-17] MEDS ORDERED: DICY20TA11 PO (04:33)
[2021-04-17] MEDS ORDERED: FAMO20TA5 PO (04:33)
[2021-04-17] MEDS ORDERED: med rec comment (04:39)
[2021-04-17] MEDS ORDERED: HOME MED LIST COMPLETE! XX SCH (04:40)
[2021-04-17] MEDS ORDERED: MAALOX 30 ML SUSP *UDC PO PRN (04:55)
[2021-04-17] MEDS ORDERED: ACETAMINOPHEN TAB 650MG DOSE (2X325MG) PO PRN (04:55)
[2021-04-17] MEDS ORDERED: MOM 30ML SUSPENSION UDC PO PRN (04:55)
[2021-04-17] MEDS ORDERED: FAMOTIDINE 20 MG TAB PO PRN (05:00)
--- NOTE | 2021-04-17 05:04 | HPEPDOC ---
General Date of Admission Date of Service: Apr 17, 2021 Attending Physician: GRAY MADERA MD Chief Complaint The patient is a 36-year-old female admitted with a reason for visit of Intoxication. Source: Patient, RN/MD, EMS Exam Limitations: Other (Patient is poor historian, she is speaking very fast unable to understand) Timing/Duration: Other (Unknown) Severity: Other Associated Symptoms: Other (Not applicable) History of Present Illness This is 36 years old white female with past medical history of vitamin D deficiency, anxiety disorder, depression, ADHD, vertebral compression fracture, arthritis, migraine, Crohn's disease, facial cellulitis with a bizarre behavior was brought by EMS with confusion and combativeness. When I examined patient she is not combative she is very cooperative but she speaks in a very fast so it is very hard to understand what she is trying to communicate and she is unable to focus to answer my questions. She also was noticed to have flight of ideas jumping from one-point to other without making any sense. When asked patient about drug use she confesses smoking marijuana on and off but she denies any drugs or taking more than her normal dosage of her meds. Home Medications Scheduled Dextroamphetamine/Amphetamine (Adderall 30 mg Tablet) 30 Mg Tablet, 30 MG PO DAILY, (Reported) Duloxetine Hcl (Duloxetine HCl) 30 Mg Cap, 30 MG PO DAILY, (Reported) Fentanyl (Fentanyl) 25 Mcg/Hr Dis, 75 MCG TD Q3RD, (Reported) Methotrexate Sodium (Methotrexate) 25 Mg/1 Ml Vial, 25 MG INJ QWEEK, (Reported) Pantoprazole Sodium (Pantoprazole Sodium) 40 Mg Tablet.dr, 40 MG PO BID, (Reported) Scopolamine (Transderm-Scop) 1 Each Patch.td.3, 1 PATCH TOP Q3DP, (Reported) behind ear Scheduled PRN Dicyclomine HCl (Dicyclomine HCl) 20 Mg Tablet, 20 MG PO QID PRN for ABDOMINAL PAIN, (Reported) Famotidine (Famotidine) 20 Mg Tablet, 20 MG PO BID PRN for stomach upset, (Reported) Oxycodone HCl/Acetaminophen (Oxycodone-Acetaminophen 10-325) 1 Each Tablet, 1 TAB PO Q4H PRN for severe pain, (Reported) Suvorexant (Belsomra) 5 Mg Tablet, 5 MG PO QHS PRN for SLEEP, (Reported) Miscellaneous Medications [med rec comment] , (Reported) unable to veify with pt. used external med history Allergies Coded Allergies: No Known Allergies (Unverified , 12/02/18) Past Medical History Medical History Anxiety, depression, ADHD, vitamin D deficiency, and facial cellulitis, arthritis, migraine, Crohn's disease Surgical History Left knee surgery, [id number]-[id number] placement and multiple EGDs Family History Father had a history of low back pain and mother had a history of CAD Social History * Smoker: Denies Alcohol: Denies Drugs: marijuana A-FIB/CHADSVASC A-FIB History Current/History of A-Fib/PAF?: No Review of Systems Other systems Unable to obtain review of system as patient is unable to focus and answer my questions secondary to her mental status and psychiatric condition Physical Examination General Exam: Positive: Alert, Other (Unable to focus loss of attention, flight of ideas) Eye Exam: Positive: PERRLA ENT Exam: Positive: Atraumatic, Other ENT (Dark discoloration of the lips and tongue noted) Neck Exam: Positive: Supple, JVD Chest Exam: Positive: Clear to auscultation, Normal air movement Heart Exam: Positive: Rate Normal Abdomen Exam: Positive: Normal bowel sounds, Soft, Other (No tenderness) Extremity Exam: Positive: Other (Multiple bruises on bilateral upper extremity and lower extremity as well as resolving follicles in different stages on bilateral upper and lower extremity noted) Skin Exam: Positive: Other skin issue (As above as well resolving pustules/follicles noted on her forehead and neck and 1 on the back) Neuro Exam: Positive: Strength at 5/5 X4 ext, Cranial Nerves 3-12 NL, Reflexes 2+ Psych Exam: Positive: Other (Flight of ideas, talking very fast unable to comprehend) Other physical findings Examination done in the ED room 1, with ED charge nurse as office director Vital Signs Vital Signs Date Time Temp Pulse Resp B/P (MAP) Pulse Ox O2 Delivery O2 Flow Rate FiO2 04/17/21 03:32 121 97 04/17/21 02:30 117/67 (84) 04/17/21 01:37 98.3 04/17/21 00:46 14 Laboratory Data Labs 24H Laboratory Tests 2 04/17/21 00:52: Urine Opiates Screen NEGATIVE, Urine Methadone Screen NEGATIVE, Urine Barbiturates Screen NEGATIVE, Urine Phencyclidine Screen NEGATIVE, Urine Amphetamines Screen NEGATIVE, Urine Benzodiazepines Screen NEGATIVE, Urine Cocaine Metabolite Screen NEGATIVE, Urine Cannabinoids Screen POSITIVEH 04/17/21 01:04: Urine Color YELLOW, Urine Appearance CLEAR, Urine pH 5.0, Urine Specific [place] 1.009, Urine Protein NEGATIVE, Urine Glucose (UA) 1+H, Urine Ketones 1+H, Urine Blood NEGATIVE, Urine Nitrite NEGATIVE, Urine Bilirubin NEGATIVE, Urine Urobilinogen 0.2, Urine Leukocyte Esterase NEGATIVE, Urine WBC (Auto) 1, Urine RBC (Auto) 0, Urine Hyaline Casts (Auto) 0, Urine Bacteria (Auto) NEGATIVE, Urine Squamous Epithelial Cells 0, Urine Mucus (Auto) SMALL, Urine Sperm (Auto) 04/17/21 01:05: Immature Granulocyte % (Auto) 0.3, Neutrophils (%) (Auto) 88.6H, Lymphocytes (%) (Auto) 6.8L, Monocytes (%) (Auto) 3.7, Eosinophils (%) (Auto) 0.3, Basophils (%) (Auto) 0.3, Neutrophils # (Auto) 13.1H, Lymphocytes # (Auto) 1.0L, Monocytes # (Auto) 0.6, Eosinophils # (Auto) 0.0, Basophils # (Auto) 0.1, Nucleated Red Blood Cells % (auto) 0.0, Anion Gap 8, Glomerular Filtration Rate > 60.0, Calcium Level 8.7, Total Bilirubin 1.0, Direct Bilirubin 0.3H, Aspartate Amino Transf (AST/SGOT) 32, Alanine Aminotransferase (ALT/SGPT) 29, Alkaline Phosphatase 105, Ammonia 17, Total Creatine Kinase 275H, Total Protein 7.3, Albumin 4.2, Albumin/Globulin Ratio 1.4, Thyroid Stimulating Hormone (TSH) 0.215L, Human Chorionic Gonadotropin, Qual NEGATIVE, Salicylates Level < 1.7L, Acetaminophen Level < 2.0L, Ethyl Alcohol Level < 0.003 04/17/21 01:21: Bedside Glucose (Misc Panel) 54L 04/17/21 01:22: Bedside Glucose (Misc Panel) 54L, POC Troponin I (Misc) 0.00 04/17/21 01:41: Bedside Glucose (Misc Panel) 145H 04/17/21 02:03: Blood Gas Bicarbonate Standard 25.9, Arterial Blood pH 7.337L, Arterial Blood Partial Pressure CO2 54.3H, Arterial Blood Partial Pressure O2 75.3, Arterial Blood Total CO2 30.1H, Arterial Blood HCO3 28.4H, Arterial Blood Base Excess 1.7, Arterial Blood Oxygen Saturation 94.3L 04/17/21 04:32: CBC/BMP Laboratory Tests 04/17/21 01:05 Assessment/Plan This is 36 years old white female with past medical history of vitamin D deficiency, anxiety disorder, depression, ADHD, vertebral compression fracture, arthritis, migraine, Crohn's disease, facial cellulitis with a bizarre behavior was brought by EMS with confusion and combativeness. When I examined patient she is not combative she is very cooperative but she speaks in a very fast so it is very hard to understand what she is trying to communicate and she is unable to focus to answer my questions. She also was noticed to have flight of ideas jumping from one-point to other without making any sense. When asked patient about drug use she confesses smoking marijuana on and off but she denies any drugs or taking more than her normal dosage of her meds.. We were called by Dr. Castorena to admit patient with a diagnosis of altered mental status and rule out serotonin syndrome. On examination patient's temperature is 98.3 heart rate of 121 blood pressure 117/67 pulse ox 97% on room air She has mild leukocytosis of 14.8 hemoglobin 11.7 platelets are normal electrolytes are normal and renal function are normal Urine tox screen shows positive cannabinoids, TSH 0.215 #1 acute toxic encephalopathy most likely secondary to polypharmacy and marijuana use #2 patient seems in acute manic phase from her symptoms #3 leukocytosis patient does has a resolving papular rash on the face arms and legs [facility] Patient will benefit from psychiatry consult to adjust her meds and evaluate for her acute manic phase. Consult can be called in the morning when the consultants are available. Patient is currently on one-to-one watch and will continue the same till she is cleared from psychiatry IV fluids normal saline 100 cc/h for hydration We will hold all patient's home medications which include duloxetine, lorazepam, Duragesic, BuSpar, gabapentin and Adderall She is apparently on methotrexate, which most likely for her Crohn's disease which I will hold at the present time. Patient has multiple bruises on her body as well but she denies any falls, ass jamaal or domestic abuse DVT prophylaxis Lovenox Diet is regular Activity as tolerated Problems (1) Altered mental status Status: Acute Plan / VTE VTE Prophylaxis Ordered?: Yes GRAY MADERA MD Apr 17, 2021 05:04
[2021-04-17 05:26] LABS: RSV AMPLIFICATION NEGATIVE (NEGATIVE)
[2021-04-17] MEDS: cefTRIAXone SOD 1 GM in D5W MINI-BAG PLUS 50 ML IV SCH (06:15)
[2021-04-17] MEDS: NS 1,000 ML IV SCH ×2 (06:15→13:06)
[2021-04-17] MEDS: ENOXAPARIN 40MG/0.4ML SYRINGE (J1650 PER 10MG) SC SCH (08:46)
[2021-04-17] MEDS: DOCUSATE SODIUM 100MG CAPSULE PO SCH ×2 (08:46→21:00)
[2021-04-17 08:55] LABS: ALBUMIN 3.7 GM/DL (3.2-5.2); ALT/SGPT 27 U/L (12-78); BILIRUBIN,TOTAL 0.8 MG/DL (0.2-1.0); BLOOD UREA NITROGEN 11 MG/DL (7-18); CALCIUM LEVEL 8.5 MG/DL (8.5-10.1); CARBON DIOXIDE LEVEL 26 MEQ/L (21-32); CHLORIDE LEVEL 102 MEQ/L (98-107); CREATININE FOR GFR 0.62 MG/DL (0.55-1.30); FREE T4 1.16 NG/DL (0.76-1.46); GLOMERULAR FILTRATION RATE > 60.0 (>60); GLUCOSE, FASTING 76 MG/DL (70-100); MAGNESIUM LEVEL 2.4 MG/DL (1.8-2.4); POTASSIUM SERUM 4.3 MEQ/L (3.5-5.1); SODIUM LEVEL 137 MEQ/L (136-145); THYROID STIMULATING HORMONE 0.117 uIU/ML (0.358-3.740); TOTAL PROTEIN 6.6 GM/DL (6.4-8.2)
[2021-04-17 10:00] VITALS: BP 100/78
[2021-04-17 10:27] LABS: BASO % 0.2 % (0.0-1.0); EOS % 0.2 % (0.0-3.0); HEMATOCRIT 33.1 % (36.0-47.0); LYMPH # 2.5 10^3/uL (1.5-5.0); LYMPH % 20.5 % (24.0-44.0); MEAN CORPUSCULAR HEMOGLOBIN 31.3 pg (27.0-33.0); MEAN CORPUSCULAR HGB CONC 33.2 g/dl (32.0-36.5); MONO # 0.7 10^3/uL (0.0-0.8); MONO % 5.4 % (2.0-8.0); NEUTROPHILS # 8.9 10^3/uL (1.5-8.5); NEUTROPHILS % 73.5 % (36.0-66.0); PLATELET COUNT, AUTOMATED 255 10^3/uL (150-450); RED BLOOD COUNT 3.52 10^6/uL (4.00-5.40); WHITE BLOOD COUNT 12.1 10^3/uL (4.0-10.0)
[2021-04-17] MEDS ORDERED: FENTANYL REMOVAL DOCUMENTATION MISC XX SCH (13:45)
--- NOTE | 2021-04-17 13:58 | IPNPDOC ---
Text Note Date of Service The patient was seen on 04/17/21. NOTE Subjective: Patient is a 36-year-old female with a PMHx of Crohn's disease, ADHD / Anxiety / Depression, Vitamin D deficiency, Migraines, Hx of facial cellulitis who presented to the ER on 04/17 via EMS after patient combative and confused. Initially on arrival to emergency room, patient appears to be manic and was speaking very fast difficult to communicate with. Patient had reported to smoking marijuana. Patient was admitted to the hospital service for further evaluation and treatment. Patient was seen and examined at the bedside. Currently patient appears to be oriented to person, place, time and president. Patient had reported that she felt that her symptoms were possibly from serotonin syndrome after she was prescribed Wellbutrin. I have advised her that psychiatry will be evaluating her later today. Patient denies any chest pain, SOB or palpitations. She reports chronic nausea and abdominal pain. She has not had any vomiting. Patient had reported some diarrhea the day prior, but noted that was not new for her. She denies any urinary discomfort. Objective: Vitals (See below) General: Lying in bed, appears comfortable, AAOx4 HEENT: NC, AT CVS: +S1S2 Lungs: Fair air entry b/l, -w/r/r Abdomen: Soft, nondistended, mild tenderness appreciated. However, patient reports that this is chronic in nature Extremities: No evidence of edema, - Calf tenderness Imaging: CXR 04/17: Negative poor inspiratory chest with little change from 08/21/2019. CT head 2: 1. Minimal right maxillary sinus disease. 2. Otherwise negative noncontrast head CT with no change intracranially since 01/07/2015. Assessment and plan: s/p Acute metabolic encephalopathy - possibly 2/2 medication - Currently patient's mentation appears to have improved; she was oriented x 4 this morning - Patient is hemodynamically stable and afebrile - Infectious workup has been negative Questionable psychosis / serotonin syndrome - Will discontinue the use of Bupropion and Duloxetine - Psychiatry on consult; appreciate their input Leukocytosis - possibly 2/2 reactive etiology, less likely 2/2 infectious etiology - Patient is hemodynamically stable and afebrile - UA negative - Imaging noted above - c/w Ceftriaxone Tachycardia - Patient appears to be tachycardic since 2018 - Will c/w IV fluid hydration Crohn's disease - Patient reports chronic nausea and abdominal pain - Methotrexate injections weekly; will resume on discharge - Reports she's on fentanyl and scopolamine patches for this - Will resume that today ADHD / Anxiety / Depression - Adderall / Duloxetine / Gabapentin / Bupropion on hold - Psychiatry on consult; appreciate their input Vitamin D deficiency Migraines DVT prophylaxis - c/w Lovenox Disposition: - Pending clinical improvement - Anticipate discharge home tomorrow VSOmaira, I+O VS, Omaira I+O Laboratory Tests 04/17/21 01:05 04/17/21 08:11 04/17/21 09:37 Vital Signs Date Time Temp Pulse Resp B/P (MAP) Pulse Ox O2 Delivery O2 Flow Rate FiO2 04/17/21 10:00 99.7 118 22 100/78 (85) 97 Room Air I&O- Last 24 Hours up to 6 AM 04/17/21 05:59 Output Total 50 ml Balance -50 ml CORTNEY MARTINEZ MD Apr 17, 2021 13:58
[2021-04-17 14:00] VITALS: BP 105/65
[2021-04-17] MEDS ORDERED: fentaNYL 25 MCG/HR PATCH TOP SCH (14:00)
[2021-04-17] MEDS ORDERED: SCOPOLAMINE 1MG TRANSDERMAL PATCH TOP SCH (14:00)
[2021-04-17] MEDS ORDERED: fentaNYL 75 MCG/HR PATCH TOP SCH (15:00)
--- NOTE | 2021-04-17 15:59 | ECGEPIP ---
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
[2021-04-17] MEDS: PANTOPRAZOLE 40MG TAB (PROTONIX) PO SCH (21:02)
[2021-04-17] MEDS ORDERED: BACITRACIN OINTMENT 30GM TUBE TOP PRN (21:40)
[2021-04-17 22:00] VITALS: BP 107/63
[2021-04-18] MEDS: NS 1,000 ML IV SCH ×2 (02:30→06:07)
[2021-04-18] MEDS: cefTRIAXone SOD 1 GM in D5W MINI-BAG PLUS 50 ML IV SCH (05:44)
[2021-04-18 05:45] VITALS: BP 132/81
[2021-04-18 06:52] LABS: BASO % 0.5 % (0.0-1.0); EOS # 0.1 10^3/uL (0.0-0.5); EOS % 1.8 % (0.0-3.0); HEMATOCRIT 31.9 % (36.0-47.0); HEMOGLOBIN 10.5 g/dl (12.0-15.5); LYMPH # 2.8 10^3/uL (1.5-5.0); LYMPH % 41.6 % (24.0-44.0); MEAN CORPUSCULAR HEMOGLOBIN 31.3 pg (27.0-33.0); MEAN CORPUSCULAR HGB CONC 32.9 g/dl (32.0-36.5); MEAN CORPUSCULAR VOLUME 94.9 fl (80.0-96.0); MONO # 0.6 10^3/uL (0.0-0.8); MONO % 8.3 % (2.0-8.0); NEUTROPHILS # 3.2 10^3/uL (1.5-8.5); NEUTROPHILS % 47.6 % (36.0-66.0); PLATELET COUNT, AUTOMATED 230 10^3/uL (150-450); RED BLOOD COUNT 3.36 10^6/uL (4.00-5.40); WHITE BLOOD COUNT 6.6 10^3/uL (4.0-10.0)
[2021-04-18 07:18] LABS: ALBUMIN 3.3 GM/DL (3.2-5.2); ALT/SGPT 23 U/L (12-78); BILIRUBIN,TOTAL 0.5 MG/DL (0.2-1.0); BLOOD UREA NITROGEN 7 MG/DL (7-18); CALCIUM LEVEL 8.2 MG/DL (8.5-10.1); CARBON DIOXIDE LEVEL 28 MEQ/L (21-32); CHLORIDE LEVEL 109 MEQ/L (98-107); GLOMERULAR FILTRATION RATE > 60.0 (>60); GLUCOSE, FASTING 89 MG/DL (70-100); MAGNESIUM LEVEL 2.4 MG/DL (1.8-2.4); SODIUM LEVEL 142 MEQ/L (136-145)
[2021-04-18] MEDS: ENOXAPARIN 40MG/0.4ML SYRINGE (J1650 PER 10MG) SC SCH (09:00)
[2021-04-18] MEDS: DOCUSATE SODIUM 100MG CAPSULE PO SCH (09:00)
[2021-04-18] MEDS ORDERED: INFLUENZA QUADRIVALENT PF VACCINE 0.5ML SYRINGE IM ONE (09:00)
[2021-04-18] MEDS: PANTOPRAZOLE 40MG TAB (PROTONIX) PO SCH (09:18)
[2021-04-18] MEDS ORDERED: AUGM875T28 PO (10:04)
--- NOTE | 2021-04-18 11:48 | DS.PDOC ---
Discharge Summary General Date of Admission Apr 17, 2021 at 04:54 Date of Discharge 04/18/2021 Discharge Summary PROCEDURES PERFORMED DURING STAY: [None]. ADMITTING DIAGNOSES / DISCHARGE DIAGNOSES: s/p Acute metabolic encephalopathy - possibly 2/2 medication Questionable psychosis / serotonin syndrome s/p Leukocytosis - possibly 2/2 reactive etiology, less likely 2/2 infectious etiology s/p Tachycardia - possibly 2/2 dehydration, possibly 2/2 Adderall Crohn's disease ADHD / Anxiety / Depression Vitamin D deficiency Migraines DVT prophylaxis COMPLICATIONS/CHIEF COMPLAINT: Confusion HISTORY OF PRESENT ILLNESS: Patient is a 36-year-old female with a PMHx of Crohn's disease, ADHD / Anxiety / Depression, Vitamin D deficiency, Migraines, Hx of facial cellulitis who presented to the ER on 04/17 via EMS after patient combative and confused. Initially on arrival to emergency room, patient appears to be manic and was speaking very fast difficult to communicate with. Patient had reported to smoking marijuana. Patient was admitted to the hospital service for further evaluation and treatment. Patient was seen and examined at the bedside. Patient is oriented to person, place, time, president. Reports that she feels relatively close to her baseline this morning. Denies any chest pain or palpitations. Patient reports that she has nausea and chronic right lower quadrant abdominal pain that is unchanged. Denies any urinary discomfort. Has not experienced any diarrhea. HOSPITAL COURSE: s/p Acute metabolic encephalopathy - possibly 2/2 medication - Appears to be back to baseline; oriented x 4 this morning - Hemodynamically stable and afebrile - tachycardia has resolved with IV fluid hydration - Infectious workup has been negative Questionable psychosis / serotonin syndrome - Will DC Bupropion - Resume Duloxetine on discharge - Psychiatry on consult - Case discussed with Dr. Teresa; had evaluated patient yesterday - continue Duloxetine on discharge; and discontinue Wellbutrin - Will have outpatient follow-up with psychiatry within the next 7 days s/p Leukocytosis - possibly 2/2 reactive etiology, less likely 2/2 infectious etiology - Patient is hemodynamically stable and afebrile - UA negative - Imaging noted above - Will DC Ceftriaxone; will complete antibiotic course with Augmentin as an outpatient s/p Tachycardia - possibly 2/2 dehydration, possibly 2/2 Adderall - Patient appears to be tachycardic since 2018 - Will DC IV fluid hydration - Will have outpatient follow-up with gastroenterology for Crohn's follow up Crohn's disease - Patient reports chronic nausea and abdominal pain - Methotrexate injections weekly; will resume on discharge - c/w Fentanyl and scopolamine patches form outpatient setting - Will have outpatient follow-up with gastroenterology for Crohn's follow up ADHD / Anxiety / Depression - Will c/w Adderall / Gabapentin on discharge - Will DC the use Bupropion - Resume Duloxetine on discharge - Psychiatry on consult - Case discussed with Dr. Teresa; had evaluated patient yesterday - continue Duloxetine on discharge; and discontinue Wellbutrin - Psychiatry on consult; appreciate their input Vitamin D deficiency Migraines DVT prophylaxis - c/w Lovenox DISCHARGE MEDICATIONS: Please see below. ALLERGIES: Please see below. PHYSICAL EXAMINATION ON DISCHARGE: Vitals (See below) General: Lying in bed, appears comfortable, AAOx3 HEENT: NC, AT CVS: +S1S2 Lungs: Fair air entry b/l, no wheezing / rhonchi / rales Abdomen: Soft, non-distended, non-tender Extremities: No evidence of edema, - Calf tenderness LABORATORY DATA: Please see below. IMAGING: CXR 1/2: Negative poor inspiratory chest with little change from 08/21/2019. CT head 1/2: 1. Minimal right maxillary sinus disease. 2. Otherwise negative noncontrast head CT with no change intracranially since 01/07/2015. ACTIVITY: [As tolerated]. DISCHARGE PLAN: Follow-up with primary care provider, gastroenterology and psychiatry within the next 7 days Remain compliant with treatment plan and medications Return to ER if you experience any problems DISPOSITION: Home DISCHARGE CONDITION: [Stable]. TIME SPENT ON DISCHARGE: 35 minutes. Vital Signs/I&Os Vital Signs Date Time Temp Pulse Resp B/P (MAP) Pulse Ox O2 Delivery O2 Flow Rate FiO2 04/18/21 05:45 98.2 83 20 132/81 (98) 93 Room Air I&O- Last 24 Hours up to 6 AM 04/18/21 06:00 Intake Total 2620 ml Balance 2620 ml Laboratory Data Labs 24H Laboratory Tests 2 04/18/21 06:05: Immature Granulocyte % (Auto) 0.2, Neutrophils (%) (Auto) 47.6, Lymphocytes (%) (Auto) 41.6, Monocytes (%) (Auto) 8.3H, Eosinophils (%) (Auto) 1.8, Basophils (%) (Auto) 0.5, Neutrophils # (Auto) 3.2, Lymphocytes # (Auto) 2.8, Monocytes # (Auto) 0.6, Eosinophils # (Auto) 0.1, Basophils # (Auto) 0.0, Nucleated Red Blood Cells % (auto) 0.0, Anion Gap 5L, Glomerular Filtration Rate > 60.0, Calcium Level 8.2L, Magnesium Level 2.4, Total Bilirubin 0.5, Aspartate Amino Transf (AST/SGOT) 17, Alanine Aminotransferase (ALT/SGPT) 23, Alkaline Phosphatase 86, Total Protein 6.0L, Albumin 3.3, Albumin/Globulin Ratio 1.2 CBC/BMP Laboratory Tests 04/18/21 06:05 Microbiology Microbiology 04/17/21 Blood Culture - Preliminary, Resulted No growth after 24 hours . All specim... 04/17/21 Blood Culture - Preliminary, Resulted No growth after 24 hours . All specim... Discharge Medications Scheduled Amoxicillin/Potassium Clav (Augmentin 875-125 Tablet) 1 Each Tablet, 1 TAB PO BID Dextroamphetamine/Amphetamine (Adderall 30 mg Tablet) 30 Mg Tablet, 30 MG PO DAILY, (Reported) Duloxetine Hcl (Duloxetine HCl) 30 Mg Cap, 30 MG PO DAILY Fentanyl (Fentanyl) 25 Mcg/Hr Dis, 75 MCG TD Q3RD, (Reported) Methotrexate Sodium (Methotrexate) 25 Mg/1 Ml Vial, 25 MG INJ QWEEK, (Reported) Pantoprazole Sodium (Pantoprazole Sodium) 40 Mg Tablet.dr, 40 MG PO BID, (Reported) Scopolamine (Transderm-Scop) 1 Each Patch.td.3, 1 PATCH TOP Q3DP, (Reported) behind ear Scheduled PRN Dicyclomine HCl (Dicyclomine HCl) 20 Mg Tablet, 20 MG PO QID PRN for ABDOMINAL PAIN, (Reported) Famotidine (Famotidine) 20 Mg Tablet, 20 MG PO BID PRN for stomach upset, (Reported) Oxycodone HCl/Acetaminophen (Oxycodone-Acetaminophen 10-325) 1 Each Tablet, 1 TAB PO Q4H PRN for severe pain, (Reported) Suvorexant (Belsomra) 5 Mg Tablet, 5 MG PO QHS PRN for SLEEP, (Reported) Allergies Coded Allergies: No Known Allergies (Unverified , 12/02/18) CORTNEY MARTINEZ MD Apr 18, 2021 11:48
[2021-04-18] MEDS ORDERED: DULO30CA9 PO (12:51)
--- NOTE | 2021-04-18 20:54 | MHIPN ---
[facility] PROGRESS NOTE/ PSYCHIATRIC CONSULTATION NOTE FOR MEDICAL SERVICE DATE: 04/18/2021 HISTORY OF PRESENT ILLNESS: This is a 36-year-old white female, single living with her boyfriend who presents to the Emergency Room in a confused mental status. The ambulance was apparently called by her boyfriend. Patient thinks that she has so called "serotonin syndrome." She had had an episode of this in the past. She is vague about details. In any event recently she has felt confused. She also stays awake for 4 to 5 nights in a row; this has been going on for about 6 months. After 5 nights with no sleep she eventually crashes and sleeps deeply, but is very disorganized thereafter. Patient is being followed by Dr. Parham at the local clinic. She is on Adderall 30 mg once daily p.r.n. her amphetamine urine screen is negative. She is also on Cymbalta 30 mg per day. Patient reports taking; however, a 60 mg dose as well for a total of 90. She is on methotrexate as well. There is a reference to BuSpar which could contribute to serotonin syndrome, but this is not on her medication log. Staff were concerned because she has flight of ideas with pressured speech in the Emergency Room. Patient has severe Crohn's disease; she is disabled and has not been able to work for a number of years because of this condition. As mentioned above she works closely with Dr. Parham and has a therapist as well who is a major support at the local clinic. She does report chronic mild depression. Her appetite fluctuates. Her weight fluctuates as well between 200 and 220. She has severe insomnia as well and is awake for days at a time. She is adamant that she did not take an overdose. She denies any other psychosocial stressors; she denies history of manic episodes for example. MENTAL STATUS EXAM: Patient is reasonably alert. She is oriented times 3. Her short term memory; however, is impaired with signs of some cognitive deficits. Speech is quite rapid and pressured. She is also tearful and weepy off and on. She does report mild depressive symptoms. She is not suicidal. She is not homicidal. No signs of psychosis. She is not hearing voices. No paranoia or thought disorder. Grooming and hygiene appear good. No current signs of impulsivity or dangerousness. DIAGNOSES: 1. Major depression recurrent. 2. ADHD by history. 3. Rule out serotonin syndrome. PLAN: Discontinue Wellbutrin. Patient claims she is on 450 mg per day, but I cannot find this in the medication log. She also potentially might be on BuSpar as well, but again this is not on her medication log. Patient herself is not a good historian and cannot confirm or deny this. My recommendation would be to discontinue the Wellbutrin as well as the BuSpar if she is indeed still on it. Patient is given the option of inpatient mental health services on a voluntary basis; however, she wishes to return home and to follow up with Dr. Parham on an outpatient basis once her cognitive state has bounced back to normal. Case was reviewed with Dr. Smith.
== END 2021-04-18 13:31 | disposition home or self-care (01) | DRG 92 ==
LOC: EDBD 00:32 → M ED 00:32 → M ED INP 04:54 → ENRESERV 08:23 → M MSPAV 10:09
PROVIDERS: ADMIT Internal Medicine; ATTEND Internal Medicine
DX: G92.8 Other toxic encephalopathy (principal); K50.90 Crohn's disease, unspecified, without complications; F33.9 Major depressive disorder, recurrent, unspecified; E55.9 Vitamin D deficiency, unspecified; F41.9 Anxiety disorder, unspecified; R00.0 Tachycardia, unspecified; E86.0 Dehydration; F90.9 Attention-deficit hyperactivity disorder, unspecified type; G43.909 Migraine, unspecified, not intractable, without status migrainosus; R21 Rash and other nonspecific skin eruption; T43.295A Adverse effect of other antidepressants, initial encounter; Z79.899 Other long term (current) drug therapy

== ENCOUNTER → 2021-08-16 | Outpatient (REF) | payer MEDICARE, MEDICAID ==
[~2021-08-16] MED LIST changes: +ADDE30TA PO; +AUGM875T28 PO; +BELS1TAB PO; +DICY20TA20 PO; +FAMO20TA5 PO; +METH25IN12 INJ; -MOME50SP; +NASO50SP3; +OXYC10TA3 PO; +PANT40TA29 PO; +TRAN1DIS4 TOP; +med rec comment
[2021-08-16 16:21] LABS: HEMOGLOBIN 14.6 g/dl (12.0-15.5); MEAN CORPUSCULAR HEMOGLOBIN 31.1 pg (27.0-33.0); MEAN CORPUSCULAR HGB CONC 33.2 g/dl (32.0-36.5); MEAN CORPUSCULAR VOLUME 93.6 fl (80.0-96.0); PLATELET COUNT, AUTOMATED 337 10^3/uL (150-450); WHITE BLOOD COUNT 11.2 10^3/uL (4.0-10.0)
[2021-08-16 17:04] LABS: ALBUMIN 4.3 GM/DL (3.2-5.2); ALT/SGPT 26 U/L (12-78); BILIRUBIN,TOTAL 1.2 MG/DL (0.2-1.0); BLOOD UREA NITROGEN 14 MG/DL (7-18); CALCIUM LEVEL 9.2 MG/DL (8.5-10.1); CARBON DIOXIDE LEVEL 30 MEQ/L (21-32); CHLORIDE LEVEL 100 MEQ/L (98-107); CREATININE FOR GFR 0.89 MG/DL (0.55-1.30); FOLATE 17.6 NG/ML (>5.4); FREE T4 1.03 NG/DL (0.76-1.46); GLOMERULAR FILTRATION RATE > 60.0 (>60); GLUCOSE, FASTING 103 MG/DL (70-100); POTASSIUM SERUM 3.6 MEQ/L (3.5-5.1); SODIUM LEVEL 136 MEQ/L (136-145); TOTAL 25(OH) VITAMIN D 29.3 NG/ML (30.0-100.0); TOTAL PROTEIN 7.8 GM/DL (6.4-8.2); VITAMIN B12 LEVEL 384 PG/ML (247-911)
== END ==
LOC: M SFHCCAPE 11:29
PROVIDERS: ATTEND Family Medicine
DX: L25.9 Unspecified contact dermatitis, unspecified cause (principal); K50.918 Crohn's disease, unspecified, with other complication; F32.9 Major depressive disorder, single episode, unspecified; D51.8 Other vitamin B12 deficiency anemias; E55.9 Vitamin D deficiency, unspecified

== ENCOUNTER → 2021-12-07 | Outpatient (REF) | payer MEDICARE, MEDICAID ==
[2021-12-07 17:00] LABS: BASO % 0.1 % (0.0-1.0); EOS # 0.3 10^3/uL (0.0-0.5); HEMATOCRIT 37.4 % (36.0-47.0); HEMOGLOBIN 12.2 g/dl (12.0-15.5); LYMPH # 2.2 10^3/uL (1.5-5.0); LYMPH % 26.8 % (24.0-44.0); MEAN CORPUSCULAR HGB CONC 32.6 g/dl (32.0-36.5); MEAN CORPUSCULAR VOLUME 92.1 fl (80.0-96.0); MONO # 0.6 10^3/uL (0.0-0.8); MONO % 6.7 % (2.0-8.0); NEUTROPHILS # 5.3 10^3/uL (1.5-8.5); NEUTROPHILS % 63.2 % (36.0-66.0); PLATELET COUNT, AUTOMATED 308 10^3/uL (150-450); RED BLOOD COUNT 4.06 10^6/uL (4.00-5.40); WHITE BLOOD COUNT 8.4 10^3/uL (4.0-10.0)
[2021-12-07 17:36] LABS: ALBUMIN 3.5 GM/DL (3.2-5.2); BLOOD UREA NITROGEN 10 MG/DL (7-18); CARBON DIOXIDE LEVEL 28 MEQ/L (21-32); CHLORIDE LEVEL 102 MEQ/L (98-107); CREATININE FOR GFR 0.64 MG/DL (0.55-1.30); FREE T4 0.72 NG/DL (0.76-1.46); GLOMERULAR FILTRATION RATE > 60.0 (>60); GLUCOSE, FASTING 84 MG/DL (70-100); POTASSIUM SERUM 4.1 MEQ/L (3.5-5.1); SODIUM LEVEL 135 MEQ/L (136-145)
[2021-12-07 18:00] LABS: TOTAL 25(OH) VITAMIN D 25.4 NG/ML (30.0-100.0)
== END ==
LOC: M SFHCADAM 14:42
PROVIDERS: ATTEND Family Medicine
DX: E55.9 Vitamin D deficiency, unspecified (principal); E03.8 Other specified hypothyroidism; D72.829 Elevated white blood cell count, unspecified; Z79.891 Long term (current) use of opiate analgesic

== ENCOUNTER → 2022-09-18 | Outpatient (REF) | payer MEDICARE, MEDICAID ==
[2022-09-18 18:49] LABS: GC DNA AMPLIFICATION NEGATIVE (NEGATIVE)
== END ==
LOC: M SFHCWAGY 16:51
PROVIDERS: ATTEND Nurse Practitioner Family
DX: Z12.4 Encounter for screening for malignant neoplasm of cervix (principal); Z11.3 Encounter for screening for infections with a predominantly sexual mode of transmission; N94.10 Unspecified dyspareunia; N88.0 Leukoplakia of cervix uteri
CPT/HCPCS: 87070; 87624; 87661; 87810; 87850; G0123

== ENCOUNTER → 2022-11-16 | Outpatient (REF) | payer MEDICARE, MEDICAID | LOC: M LAB REF 14:30 | PROVIDERS: ATTEND Internal Medicine Gastroenterology | DX: R19.7 Diarrhea, unspecified (principal); R13.10 Dysphagia, unspecified; K21.00 Gastro-esophageal reflux disease with esophagitis, without bleeding ==

== ENCOUNTER → 2023-01-04 | Outpatient (CLI) | payer MEDICARE, MEDICAID ==
[~2023-01-04] MED LIST changes: +MECL-209 PO; -MECL1TAB31 PO
== END ==
LOC: M RAD 11:42
PROVIDERS: ATTEND Internal Medicine Gastroenterology
DX: R11.2 Nausea with vomiting, unspecified (principal)
CPT/HCPCS: 78264; A9541

== ENCOUNTER → 2023-06-29 | Outpatient (CLI) | payer MEDICARE, MEDICAID ==
[~2023-06-29] MED LIST changes: -KLON0.5T PO; +KLON0.5T8 PO
== END ==
LOC: M WHC 14:17
PROVIDERS: ATTEND Family Medicine
DX: Z12.31 Encounter for screening mammogram for malignant neoplasm of breast (principal); M48.56XA Collapsed vertebra, not elsewhere classified, lumbar region, initial encounter for fracture

== ENCOUNTER → 2024-05-09 | Outpatient (CLI) | payer MEDICARE, MEDICAID ==
[~2024-05-09] MED LIST changes: +GABA-1172 PO; -GABA-282 PO; -PROC25SU24 PO; +PROC25SU27 PO; +VANC250C12 PO; -VANC250C3 PO
== END ==
LOC: M RAD 12:41
PROVIDERS: ATTEND Nurse Practitioner Family
DX: R10.2 Pelvic and perineal pain (principal); N94.10 Unspecified dyspareunia

== ENCOUNTER → 2024-09-02 | Outpatient (REF) | payer MEDICARE, MEDICAID ==
[~2024-09-02] MED LIST changes: +BUPR150T15; -BUPR1TAB53
[2024-09-02 18:02] LABS: HEMATOCRIT 43.6 % (36.0-47.0); HEMOGLOBIN 14.6 g/dl (12.0-15.5); MEAN CORPUSCULAR HEMOGLOBIN 31.1 pg (27.0-33.0); MEAN CORPUSCULAR HGB CONC 33.5 g/dl (32.0-36.5); PLATELET COUNT, AUTOMATED 304 10^3/uL (150-450); RED BLOOD COUNT 4.69 10^6/uL (4.00-5.40); WHITE BLOOD COUNT 10.8 10^3/uL (4.0-10.0)
[2024-09-02 18:27] LABS: ALBUMIN 4.2 G/DL (3.2-5.2); ALKALINE PHOSPHATASE 97 U/L (35-104); ALT/SGPT < 9 U/L (7.0-40); AST/SGOT 12 U/L (<34); BILIRUBIN,TOTAL 0.6 MG/DL (0.3-1.2); BLOOD UREA NITROGEN 10 MG/DL (9-23); CALCIUM LEVEL 9.5 MG/DL (8.5-10.1); CARBON DIOXIDE LEVEL 31 MMOL/L (20-31); CHLORIDE LEVEL 100 MMOL/L (98-107); CREATININE FOR GFR 0.67 MG/DL (0.55-1.30); GLOMERULAR FILTRATION RATE > 90.0 (>60); GLUCOSE, FASTING 85 MG/DL (60-100); POTASSIUM SERUM 5.5 MMOL/L (3.5-5.1); SODIUM LEVEL 138 MMOL/L (136-145); TOTAL PROTEIN 7.4 G/DL (5.7-8.2)
[2024-09-02 18:29] LABS: FOLATE 11.99 NG/ML (>5.4); THYROID STIMULATING HORMONE 0.178 uIU/ML (0.55-4.78); TOTAL 25(OH) VITAMIN D 46.2 NG/ML (20.0-100.0)
[2024-09-02 18:30] LABS: FREE T4 1.25 NG/DL (0.89-1.76); VITAMIN B12 LEVEL 307 PG/ML (211-911)
== END ==
LOC: M SFHCADAM 15:15
PROVIDERS: ATTEND Family Medicine
DX: R20.0 Anesthesia of skin (principal); D51.8 Other vitamin B12 deficiency anemias; M80.00XD Age-related osteoporosis with current pathological fracture, unspecified site, subsequent encounter for fracture with routine healing; Z79.891 Long term (current) use of opiate analgesic